=== PATIENT | male | born 1955 | race Caucasian/White ===

== ENCOUNTER → 2018-11-20 10:52 | Outpatient (CLI) | payer OTHER, SELFPAY ==
[2018-11-20 11:01] LABS: Bacteria Urine None Seen; RBC Urine None Seen (0-5/HPF); WBC Urine None Seen (0-5/HPF)
[2018-11-20 11:18] LABS: Appearance Urine UA CLEAR; Bilirubin Urine UA NEGATIVE (NEGATIVE); Color Urine UA YELLOW; Glucose Urine UA NEGATIVE (Negative); Ketones Urine UA NEGATIVE (NEGATIVE); Leukocyte Esterase Urine UA NEGATIVE (NEGATIVE); Nitrite Urine UA NEGATIVE (Negative); Occult Blood Urine UA NEGATIVE (Negative); Protein Urine UA NEGATIVE (Negative); Urobilinogen Urine UA 0.2 E.U./dL (0.2); pH Urine UA 6.5 (4.5-8.0)
[2018-11-20 11:21] LABS: Hematocrit 43.2 % (41-53); Hemoglobin 14.8 g/dL (13.5-17.5); Mean Corpuscular HGB Conc 34.3 % (30-36); Mean Corpuscular Volume 87.4 fL (80-100); Platelet Count 253 X10^3/uL (150-400); Red Blood Cell Count 4.94 X10^6/uL (4.5-5.9); Red Cell Distribution Width 13.2 % (11.6-14.8); White Blood Cell Count 6.1 X10^3/uL (4.5-11.0)
[2018-11-20 11:23] LABS: Urine Comments Microscopic Normal
[2018-11-20 11:32] LABS: Hemoglobin A1C% w Est Avg Glu 5.2 % (4.0-6.0)
[2018-11-20 11:36] LABS: Blood Urea Nitrogen 18 mg/dL (9-20); Carbon Dioxide 31 mmol/L (22-32); Chloride 98 mmol/L (98-107); Estimated Glomerular Filt Rate > 60.0 mL/min (>60); Glucose 103 mg/dL (80-110); HEMOLYSIS < 15 (0-50); Potassium 4.6 mmol/L (3.4-5.1); Sodium 141 mmol/L (137-145)
[2018-11-20 11:39] LABS: Transferrin 271 mg/dL (206-381)
== END ==
PROVIDERS: Visit Provider Orthopaedic Surgery
DX: Z01.818 Encounter for other preprocedural examination (principal); E61.1 Iron deficiency; N39.0 Urinary tract infection, site not specified; R73.9 Hyperglycemia, unspecified
CPT/HCPCS: 36415; 80048; 81001; 83036; 84466; 85027; 93005; 93010

== ENCOUNTER 2018-12-08 06:04 | Inpatient (IN) | payer OTHER, SELFPAY ==
[2018-11-26 13:51] VITALS: BMI 29.7
[2018-12-08] VITALS (18 sets, daily range): BP systolic 119–151; BP diastolic 62–95; PULSE 59–90; RESP 15–19; TEMP 36.3–36.9; O2SAT 93–96; BMI 27.8
--- NOTE | 2018-12-08 06:45 | DI.RAD.S_ITS ---
PROCEDURE: XR KNEE RT 1TO2V INDICATIONS: post op films TECHNIQUE: 2 view(s) of the knee acquired. COMPARISON: [facility], XR KNEE ARTHRITIC SERIES , 09/02/2018, 8:52. FINDINGS: Bones: Patient is status post knee joint arthroplasty. Hardware components are in expected positions. Visualized bony structures are intact. Soft tissues: Overlying postoperative changes are noted. IMPRESSION: Expected post surgical as above. Dictated by: Margarita Fortune M.D. on 12/08/2018 at 10:27 Approved by: Margarita Fortune M.D. on 12/08/2018 at 10:28
[2018-12-08] MEDS: LACTATED RINGERS 1,000 ML 42 ML IV (07:15)
[2018-12-08] MEDS: ACETAMINOPHEN 325 MG TABLET 975 MG PO ×2 (07:19→14:14)
[2018-12-08] MEDS: PREGABALIN 75 MG CAPSULE PO (07:20)
[2018-12-08] MEDS: CELECOXIB 200 MG CAPSULE PO (07:20)
--- NOTE | 2018-12-08 07:35 | PM.PREOP ---
Pre-operative Note Interval Note History & Physical reviewed/Exam performed by Physician: Yes Changes to H&P: No
--- NOTE | 2018-12-08 07:36 | PM.OP.1 ---
Operative Date/Time/Diagnoses Date of procedure: 12/08/18 Time of procedure: 09:15 Pre-op diagnosis: Right knee osteoarthritis Post-op diagnosis: same Procedure & Clinicians Procedure: Right total knee replacement Same procedure as scheduled: Yes Indications: The patient has had progressively worsening right knee pain with radiographic changes consistent with arthritis. Non-operative management has failed and the patient has requested total knee replacement. The risks, benefits and alternatives to surgery were discussed with the patient prior to proceeding. Risks discussed included, but were not limited to, failure to relieve pain, stiffness, infection, nerve damage, deep venous thrombosis, pulmonary embolism, stroke, coma, heart attack, permanent paralysis and , as well as the potential need for eventual revision of the prosthetic. Surgeon: Sam George Director Payer: Thu Zaragoza Click Yes if Unassisted: No Anesthesia Type: General, Spinal and Local Operative Notes Findings: Severe lateral and moderately severe medial and patellofemoral osteoarthritis Closure Type: primary Specimen(s): none sent Prosthetic devices, grafts, tissues, transplants, or devices: Implants used in this procedure were manufactured by the [employer] and [employer] and included the BCS II Journey total knee replacement with a size 6 Oxinium femur, a size 6 non porous tibial base plate, a 10 mm cross-linked polyethylene tibial insert and a 38 mm oval Manuela II patellar component. Applied: implant(s) Estimated Blood Loss (mL): 25 Blood products transfused: none Tourniquet time (min): 52 Procedure in detail: The patient was seen in the pre-operative area, where the patient identified the right knee as the operative site and this was marked with my initials. The patient received pre-operative antibiotics, and was taken to the operating room and placed on the operative table in the supine position. After satisfactory anesthesia, a time analysis clerk out was performed. The right leg was encircled with a tourniquet about the proximal thigh, and the leg was prepared from the toes to the tourniquet with ChloroPrep in the usual fashion and draped through sterile drapes. The leg was elevated and exsanguinated with Eschmark bandage and the tourniquet inflated to 250 mmHg pressure. The knee was approached through an approximately 18 cm incision centered over the patella and carried into the knee through a medial parapatellar arthrotomy. The anterior osteophytes and soft tissues were removed. The rotational landmarks of Celestino's line and the transepicondylar axis were marked on the femur with electrocautery, and intramedullary guide holes for the femur and tibia were created. The distal femoral cut was made in 6 degrees of valgus using the intramedullary guide at the primary cut setting. The proximal tibial cut was then made using the intramedullary guide, taking 7 mm of bone off the less involved medial side. The extension gap was checked and the rotation of the femoral component confirmed with the gap balancing system. The anterior, posterior and chamfer cuts were then made. The posterior osteophytes and soft tissues were then removed. The posterior capsule was injected with part of a mixture of 60 ml 0.25% Marcaine mixed with 20 ml Exparel and 4 mg of morphine for post-operative pain control. The remainder of this mixture was injected into the capsule and subcutaneous tissues during cement curing. The tibia was prepared with the rotation set by an extra medullary guide. Trial tibial and femoral components were then placed and the intercondylar notch cut through the femoral trial. Range of motion was 0-140 degrees, with good stability throughout the range. The patella was then cut to accommodate the patellar prosthetic. There was no need for a lateral release. The trials were then removed, and the femoral hole plugged with a bone plug. The bone was prepared with pulsatile lavage, and dried with a sponge. Cement was applied and the final prosthetics placed. Excess cement was removed during and after cement curing. After confirming there was no extruded cement posteriorly, the final tibial insert was placed. The knee was copiously irrigated and the tourniquet deflated. Hemostasis was obtained. The capsule was closed with interrupted # 2 polyester suture. The subcutaneous layer was closed with 3-0 Vicryl, and the skin with a running 3-0 V-Lock suture and SteriStrips. An Aquacel Ag dressing was applied and the patient was taken to recovery having tolerated the procedure well. Complications: none Post-operative Condition: stable Disposition: PACU Plan for aftercare: The patient will be maintained on a standard total knee replacement protocol with weight bearing as tolerated. The patient will receive aspirin and sequential compression devices for DVT prophylaxis. The patient will be discharged home when safe for the home environment.
[2018-12-08] MEDS: CEFAZOLIN 2 GM/100 ML FROZ.PIGGY IV ×2 (07:47→21:20)
[2018-12-08] MEDS: TRANEXAMIC ACID 1,000 MG VIAL 1000 MG INJ ×2 (08:13→09:07)
--- NOTE | 2018-12-08 08:16 | SUR.OPER ---
Supine on padded OR bed. Pillow under head, arms secured on padded armboards <90 degree abduction. Safety belt across torso. Non-operative leg secured with tape over blanket over lower leg. Operative leg secured in DeMayo/Luther positioner.
[2018-12-08] MEDS: BUPIVACAINE 0.25% W/ EPI 30 ML VIAL 60 ML INJ (08:19)
[2018-12-08] MEDS: MORPHINE 4 MG/ML INJ INJ (08:20)
[2018-12-08] MEDS: BUPIVACAINE LIPOSOME 266 MG/20 ML VIAL INJ (08:20)
--- NOTE | 2018-12-08 10:18 | PC.NURSE ---
Day shift: Pt on unit at approx 1015. 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 Will medicate per APR.
[2018-12-08] MEDS: OXYCODONE IR 10 MG TABLET PO ×3 (10:25→18:07)
--- NOTE | 2018-12-08 10:36 | SUR.PHASEI ---
0940 late entry To PACU, sleeping, resp unlabored, skin warm and dry, dressing CDI, pulses RLE strong. Ice/elevation to RLE. 1000 late entry Slept during RLE x-ray. Aroused spontaneously, states that I can feel it referring to rlE pain. pain level 4/10, appears relaxed, no grimace, moaning, etc. plan: transfer to acute care and begin pain management . report called to floor 1012 To 212, bed down and locked, call light within reach, clothing bag to the room. VSS on room air. Pt awake and oriented, Dressing remains CDI, Reported CMS improving in regards to being able to void soon. notified that he was in the room. Pt expressed appreciation for care. HOB elevated and crackers given upon arrival. SCD's on. No questions/concerns from staff or patient.
[2018-12-08] MEDS: LACTATED RINGERS 1,000 ML 125 ML IV ×2 (10:51→18:07)
--- NOTE | 2018-12-08 15:39 | PT.IIE ---
Current Diagnoses Unilateral primary osteoarthritis, right knee (12/08/18) Surgery Performed Operation Date: 12/08/18 07:45 Actual Procedures p Total Knee Arthroplasty(Right) - Sam George MD Surgical History (Last Updated 12/05/18 @ 11:19 by Audrey Herrera RN) Hx of appendectomy (Acute) Hx of bilateral inguinal hernia repair (Acute) Hx of prostatectomy (Acute ~12/2015) Hx of tonsillectomy (Acute) Medical History (Last Updated 12/05/18 @ 11:21 by Audrey Herrera RN) Amputation finger (Acute) Brain injury (Acute) Compound fracture (Acute) Dyslexia (Acute) Fistula (Acute ~1987) HLD (hyperlipidemia) (Acute) HTN (hypertension) (Acute) Incomplete right bundle branch block (RBBB) (Acute ~2016) Migraines (Acute) Neck fracture (Acute ~1985) Osteoarthritis (Acute) Prostate cancer (Acute) Tinnitus (Acute) Physical Therapy Inpatient Evaluation/Re-Eval M1 PT/OT-IP Prior Functional Status Start: 12/08/18 14:53 Freq: NEEDED Status: Active Protocol: Document 12/08/18 14:54 JGerman (Rec: 12/08/18 15:37 [id number]) Medical Review Prior Functional Status Medical History Reviewed Yes Mobility and Gait pt reports independent or modified independent using SPC for ambulation. Activities of Daily Living and IADL's independent with ADLs prior to TKA. Prior Functional Level (Other details) pt reports chronic R hip pain d/t previous surgeries, chronic B/L knee pain. plans to have L knee TKA. high physical activity level prior to surgery, pt reports walking 5 miles yesterday. uses SPC as needed d/t pain. Social History Household Members spouse Living Arrangements House Number of Floors (Floors) One Floor Number of Stairs To Enter/Railing? 3 stairs, railing on both sides but wide staircase. Home Environment Standard Height Toilet,Walk in Shower Home Equipment Front Wheel Walker,Straight Cane Employment Status [employer] Employed Additional Social History Comment pt's spouse available to help c mobility at home. pt and spouse are semi-retired. pt's home is single level but has 2 stairs w/o railing into tv room. has 3 dogs at home. M2 PT-IP Current Condition Start: 12/08/18 14:53 Freq: NEEDED Status: Active Protocol: Document 12/08/18 14:54 JG (Rec: 12/08/18 15:37 JG [email or web address]) Physical Therapy Current Condition Current Condition Evaluation Date 12/08/18 Treatment Diagnosis mobility deficits Weight Bearing Status Weight Bearing Status Weight Bear as Tolerated M3 PT-IP Subjective Start: 12/08/18 14:53 Freq: NEEDED Status: Active Protocol: Document 12/08/18 14:54 JG (Rec: 12/08/18 15:37 JG [email or web address]) Subjective Physical Therapy Visit Type Type Initial Evaluation Visit Start Time 13:50 Visit Stop Time 14:50 Total Visit Minutes 60 Physical Therapy Visit Comments Patient Comments pt notes high pain irritability with activity. pt agreeable to therapy and motivated. Patient Goals return to home and regular physical activity. Therapy Pain Assessment Pain Present Pain Present Pain Reported Location Right Knee Intensity 7 Scale Used Numeric (1 - 10) Pain Behaviors Facial Grimacing,Wincing Pain Management Techniques Timing of Activity with Medications M4 PT-IP Mobility and Gait Start: 12/08/18 14:53 Freq: NEEDED Status: Active Protocol: Document 12/08/18 14:54 JG (Rec: 12/08/18 15:37 JG [email or web address]) PT-Bed Mobility Assessment Rolling Level of Assist Independent Supine to Sit Supine to Sit Independent,Head of Bed Elevated PT-Transfer Assessment Sit to and From Stand Sit to and from Stand Contact Guard Assistance Equipment Transfer Assistive Device Gait Belt,Front Wheeled Walker Comments Mobility Comments no orthostatic drop in BP noted, see vitals section for specifics. Gait Assessment Gait Gait Assistance Required: Contact Guard Assist Distance (Feet) 50 Assistive Devices Assistive Device Front Wheeled Walker Gait Deviations General Gait Pattern Antalgic Factors Limiting Gait Function Factors Limiting Gait Function Pain Comments Gait Comments pt's walker fitted prior to ambulation. reports pain during ambulation. demonstrates antalgic gait but still maintains normal components of gait cycle. PT-Balance Assessment Sitting Balance and Reactions Static Sitting Balance Ability Good Dynamic Sitting Balance Ability Good Standing Balance and Reactions Static Standing Balance Ability Good Dynamic Standing Balance Ability Good M5 PT-IP Objective Assessments Start: 12/08/18 14:53 Freq: NEEDED Status: Active Protocol: Document 12/08/18 14:54 JG (Rec: 12/08/18 15:37 JG [email or web address]) Orientation Orientation/Cognition Level of Alertness Alert Language Function Ability No Deficits Noted Safety Awareness Understands Safety Issues Memory Description No Deficits Noted Gross Range of Motion Upper Extremity ROM Assessment Within Functional Limits Lower Extremity ROM Assessment Right Impaired Impairments limited knee flexion and extension. Strength Upper Extremity Strength Assessment Within Functional Limits Lower Extremity Strength Assessment Within Functional Limits Coordination Assessment Gross Coordination Gross Coordination WNL Sensation Assessment Sensation Gross Sensation WNL Light Touch Intact M6 PT-IP Treatment Start: 12/08/18 14:53 Freq: NEEDED Status: Active Protocol: Document 12/08/18 14:54 JG (Rec: 12/08/18 15:37 JG [email or web address]) Physical Therapy Treatment Exercises Exercises Ankle Pumps,Quad Sets,Heel Slides,Straight Leg Raises, Short Arc Quads,Passive Knee Extension Hang Education Education Provided Post-Op Packet,Safety M7 PT-IP Assessment and Plan Start: 12/08/18 14:53 Freq: NEEDED Status: Active Protocol: Document 12/08/18 14:54 JG (Rec: 12/08/18 15:37 JG [email or web address]) PT Summary Assessment and Plan Potential Rehabilitation Potential Excellent Status of Condition at Evaluation Stable Summary Impairments Pain,ROM,Balance,Transfers, Gait,Activity Tolerance Assessment Summary pt presents same day s/p R TKA with high pain irritability limiting tolerance for functional activities. pt is independent for bed mobility and requires contact guard assist for transfers and ambulation. pt will benefit from 1-2 more therapy sessions to ensure safety prior to discharge to home. treatment will focus on safely ascending /descending stairs with caregiver support prior to discharge. Goals Bed Mobility Goal Independent Transfer Goal Independent Gait Goal Standby Assistance Gait Distance 100 feet Other Goals ascend/descend 3 stairs with railing and standby assist from caregiver Days to Meet Goals 1 Frequency of Treatment Frequency Of Treatment Twice a Day Treatment Plan Physical Therapy Treatment Plan Transfer Training,Gait Training,Therapeutic Exercise, Balance Retraining,Post Op Education,Discharge Planning, Hot or Cold Pack Other Recommendations and Next Treatment stair training with caregiver Focus support Recommendations To Nursing Amount of Assist Needed 1 Person Assist Discharge Recommendations PT Discharge Recommendations Home with Assistance
[2018-12-08] MEDS: NALBUPHINE 20 MG/ML AMPUL 5 MG IV (18:26)
[2018-12-08] MEDS: PRAVASTATIN 20 MG TABLET PO (21:10)
[2018-12-08] MEDS: DOCUSATE 100 MG CAPSULE PO (21:11)
[2018-12-08] MEDS: TRAZODONE 100 MG TABLET PO (21:12)
[2018-12-08] MEDS: OXYCODONE/ACETAMINOPHEN 5/325 TABLET 2 TAB PO (21:12)
[2018-12-08] MEDS: ASPIRIN EC 81 MG TABLET PO (21:13)
--- NOTE | 2018-12-09 00:02 | PC.NURSE ---
Evening notes: Robert has been wide awake, Ox3 & pleasant. Expressed discouragement of not going home. VS stable, slightly hypertensive tonight. RA oxygen high 90's, continuous pulse ox in place evening shift. Denies numbness to legs, CMS intact. Rates pain to R knee 4/10 and medicated with Percocet. I called Dr Nation to clarify epidural pain medication orders, as patient originally started on Oxycodone but epidural orders were for Percocet. He is aware of situation and gave new order. Sat up in recliner for meal and a couple hours later transfered to bed via 1 assist. Wearing bilateral SCDs. Fall precautions in place, patient using call button appropriately. Alarm active for safety.
[2018-12-09 00:13] VITALS: BP 130/78; PULSE 68; RESP 16; TEMP 36.2; O2SAT 94
--- NOTE | 2018-12-09 00:43 | PC.NURSE ---
Addendum entered by Rachel Phillips R.N. 12/09/18 05:28: Patient complains of nail being driven through knee; medicated with Percocet. Dr Nation here and review patient's pain meds along with orders for scheduled Tylenol; d'cd Percocet and stated to use Oxycodone as long as receiving scheduled Tylenol. Addendum entered by Rachel Phillips R.N. 12/09/18 01:17: Medicated now with Percocet for 7/10 pain. Original Note: Patient is alert and oriented. Breath sounds CTA with RA sat of 94%. HRR. Denies nausea. BT present and is passing flatus. Chronic urinary dribbling but denies dysuria, frequency or urgency. Able to move self in bed. Out of bed with walker and 1 assist for safety; denies feeling weak or unsteady. Aquacel to right knee and wrapped with brittney; CDI. CMS intact bilaterally. Wearing calf SCD's. Complains of 6/10 pain but not due for additional Percocet at this time and declines Vistaril or Dilaudid stating he can wait until pain med is available; ice applied to knee. Fall risk score is high and bed alarm is activated.
[2018-12-09] MEDS: OXYCODONE/ACETAMINOPHEN 5/325 TABLET 2 TAB PO ×2 (01:14→05:07)
[2018-12-09] MEDS: LACTATED RINGERS 1,000 ML 125 ML IV (02:23)
[2018-12-09 04:45] VITALS: BP 138/76; PULSE 71; RESP 16; TEMP 36.7; O2SAT 96
[2018-12-09 07:40] VITALS: BP 136/73; PULSE 62; RESP 16; TEMP 36.5; O2SAT 96
--- NOTE | 2018-12-09 07:56 | PM.DS.1 ---
History of Present Illness History of Present Illness Date Patient Seen: 12/09/18 Time Patient Seen: 07:56 Chief complaint: [id number] Narrative: The history and physical are contained in the chart in a previously completed note. Please refer to that note for this information. Discharge Providers Provider Date of admission: 12/08/18 06:04 Discharge Date: 12/09/18 Primary care physician: Desean Yen MD Consults: 12/08/18 10:17 Consult to Discharge Planning Routine Comment: Consult to Physical Therapy Evaluate & Treat Comment: Physician Instructions: postop TKA protocol Discharge provider: Sam George MD Summary Hospital Course Discharge Diagnosis: 1. Right knee osteoarthritis Hospital Course: The patient was admitted to the hospital and taken directly to the operating room on December 08, 2018. He underwent a right total knee replacement without complication. On postoperative day 1 he was medically stable and anxious to be discharged. Status at Discharge Cognitive/behavioral status at discharge: oriented Functional status at discharge: uses cane/walker Overall status at discharge: patient is progressing back to baseline Time Spent with Patient Time spent: Less than 30 minutes Exam Vital Signs (past 8 hours): - 12/09/18 00:13 12/09/18 04:45 Temperature 97.2 F L 98.0 F Pulse Rate 68 71 Respiratory Rate 16 16 Blood Pressure 130/78 138/76 Pulse Oximetry 94 96 Oxygen Delivery Method Room Air Oxygen Flow Rate 0 Narrative Exam Narrative: Right knee wound is dressed with no drainage on the bandage. Calf is soft. Light touch and motion are intact in the right lower extremity. Discharge Plan Discharge Plan Patient Disposition: Home Discharge Med Rec/Prescriptions Prescriptions: New acetaminophen 325 mg Tablet 975 mg PO TID 30 Days Qty: 270 RF: 0 amlodipine [Norvasc] 5 mg Tablet 10 mg PO DAILY 100 Days RF: 0 aspirin 81 mg Tablet,Delayed Release (Dr/Ec) 81 mg PO BID 42 Days Qty: 84 RF: 0 meloxicam [Mobic] 7.5 mg Tablet 15 mg PO 0800 30 Days Qty: 60 RF: 0 oxycodone 5 mg Tablet 5 mg PO Q3HR PRN (Reason: Pain, Moderate (4-6)) Qty: 40 RF: 0 hydroxyzine pamoate 25 mg Capsule 25 mg PO Q6HR PRN (Reason: Nausea) Qty: 40 RF: 0 Continued pravastatin 20 MG tablet 20 mg PO BEDTIME Qty: 0 RF: 0 trazodone 100 mg Tablet 100 mg PO BEDTIME RF: 0 hydrochlorothiazide 25 mg Tablet 25 mg PO DAILY RF: 0 cetirizine [Aller-Yamilet] 10 mg Tablet 10 mg PO BEDTIME RF: 0 cyanocobalamin (vitamin B-12) [Vitamin B-12] 1,000 mcg Tablet 1,000 mcg PO DAILY RF: 0 multivitamin Capsule 1 cap PO DAILY RF: 0 Discontinued amlodipine [Norvasc] 5 MG tablet 10 mg PO DAILY Qty: 0 RF: 0 acetaminophen-codeine [Tylenol-Codeine #3] 300-30 mg Tablet 1 tab PO BID PRN (Reason: Pain) RF: 0 aspirin 81 mg Tablet,Delayed Release (Dr/Ec) 81 mg PO DAILY RF: 0 Follow up/Referrals: Desean Yen MD [Primary Care Provider] - Sam George MD [Physician] - 3-5 Days Provider Discharge Instructions Diet: Diet as Tolerated and Regular Activity: You may bear weight as tolerated on your right leg. Cold/Heat Therapy: Apply ice for 15 minutes of every hour as needed to the right knee for pain. Skin/Wound/Dressing Care Report to your healthcare provider any signs of infection, such as:: chills, fever, night sweats, increased pain, unusual drainage and unusual redness Dressing: You may remove the Sree wrap 3 days after surgery and shower normally. Leave the deeper dressing in place until follow-up. If the center strip of the deeper dressing becomes saturated with either water or blood please call the office. Visit Report/Discharge Packet Instructions: DI for Knee Replacement Stand Alone Forms: Surgery Discharge Discharge Data Primary Care Provider: Desean Yen
[2018-12-09 08:55] LABS: Hematocrit 34.8 % (41-53); Hemoglobin 12.2 g/dL (13.5-17.5)
[2018-12-09] MEDS: OXYCODONE IR 10 MG TABLET PO ×2 (09:37→13:17)
[2018-12-09] MEDS: CYANOCOBALAMIN (VITAMIN B-12) 500 MCG TABLET 1000 MCG PO (09:38)
[2018-12-09] MEDS: AMLODIPINE 5 MG TABLET 10 MG PO (09:38)
[2018-12-09] MEDS: ASPIRIN EC 81 MG TABLET PO (09:38)
[2018-12-09] MEDS: DOCUSATE 100 MG CAPSULE PO (09:38)
[2018-12-09] MEDS: hydroCHLOROthiazide 25 MG TABLET PO (09:38)
[2018-12-09] MEDS: ACETAMINOPHEN 325 MG TABLET 975 MG PO (09:38)
[2018-12-09] MEDS: MELOXICAM 7.5 MG TABLET 15 MG PO (09:40)
--- NOTE | 2018-12-09 10:46 | PT.IPTN ---
Current Diagnoses Unilateral primary osteoarthritis, right knee (12/08/18) Surgery Performed Operation Date: 12/08/18 07:45 Actual Procedures p Total Knee Arthroplasty(Right) - Sam George MD Physical Therapy Treatment Note M2 PT-IP Current Condition Start: 12/08/18 14:53 Freq: NEEDED Status: Active Protocol: Document 12/08/18 14:54 JG (Rec: 12/08/18 15:37 JG [email or web address]) Physical Therapy Current Condition Current Condition Evaluation Date 12/08/18 Treatment Diagnosis mobility deficits Weight Bearing Status Weight Bearing Status Weight Bear as Tolerated M3 PT-IP Subjective Start: 12/08/18 14:53 Freq: NEEDED Status: Active Protocol: Document 12/09/18 10:19 CLB (Rec: 12/09/18 11:18 CLB [email or web address]) Subjective Physical Therapy Visit Type Type Treatment Note Visit Start Time 10:19 Visit Stop Time 10:46 Total Visit Minutes 27 Number of 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 Therapy Pain Assessment Pain Present Pain Present Pain Reported Location Right Knee Intensity 5 Scale Used Numeric (1 - 10) Pain Management Techniques Timing of Activity with Medications M4 PT-IP Mobility and Gait Start: 12/08/18 14:53 Freq: NEEDED Status: Active Protocol: Document 12/09/18 10:19 CLB (Rec: 12/09/18 11:18 CLB [email or web address]) PT-Transfer Assessment Sit to and From Stand Sit to and from Stand Contact Guard Assistance Equipment Transfer Assistive Device Gait Belt,Front Wheeled Walker Transfers Transfer Destination Chair,Wheelchair Transfer Technique Stand Step Pivot Transfer Ability Level of Assist Contact Guard Assistance Gait Assessment Gait Gait Assistance Required: Contact Guard Assist Distance (Feet) 125 Assistive Devices Assistive Device Gait Belt,Front Wheeled Walker Gait Deviations General Gait Pattern Antalgic Factors Limiting Gait Function Factors Limiting Gait Function Pain Comments Gait Comments Pt able to walk with step through gait pattern with cues for posture and not standing to close to front of walker. Stair Climbing Assessment Evaluation Level of Assist On Stairs Contact Guard Assistance Devices Stair Climbing Assistive Devices Front Wheel Walker,Right Railing Technique/Endurance Stair Climbing Direction Ascend and Descend Stair Climbing Technique Step to Step Number of Steps Climbed 6 Stair Climbing Set # Repetitions (reps) 2 Comments Stair Climbing Comments Pt climbed three steps with right rail CGA. Pt then climbed platform step with FWW CGA. Pt present for stair training. M5 PT-IP Objective Assessments Start: 12/08/18 14:53 Freq: NEEDED Status: Active Protocol: Document 12/08/18 14:54 JG (Rec: 12/08/18 15:37 JG [email or web address]) Orientation Orientation/Cognition Level of Alertness Alert Language Function Ability No Deficits Noted Safety Awareness Understands Safety Issues Memory Description No Deficits Noted Gross Range of Motion Upper Extremity ROM Assessment Within Functional Limits Lower Extremity ROM Assessment Right Impaired Impairments limited knee flexion and extension. Strength Upper Extremity Strength Assessment Within Functional Limits Lower Extremity Strength Assessment Within Functional Limits Coordination Assessment Gross Coordination Gross Coordination WNL Sensation Assessment Sensation Gross Sensation WNL Light Touch Intact M6 PT-IP Treatment Start: 12/08/18 14:53 Freq: NEEDED Status: Active Protocol: Document 12/09/18 10:19 CLB (Rec: 12/09/18 11:18 CLB [email or web address]) Physical Therapy Treatment Exercises Exercises Quad Sets,Heel Slides,Short Arc Quads Education Education Provided Post-Op Packet,Safety M7 PT-IP Assessment and Plan Start: 12/08/18 14:53 Freq: NEEDED Status: Active Protocol: Document 12/09/18 10:19 CLB (Rec: 12/09/18 11:18 CLB [email or web address]) PT Summary Assessment and Plan Potential Rehabilitation Potential Excellent Status of Condition at Evaluation Stable Summary Impairments Pain,ROM,Balance,Transfers, Gait,Activity Tolerance Assessment Summary Pt able to meet goals for discharge. Pt able to ambulate ~125ft and climb steps with present. Pt required cues for walker use/step sequencing but was able to demonstrate proper sequencing after instruction. Pt was able to climb steps successfully but did take one step down with operated leg which increased his pain but was able to complete platform step training and get back to room . Pt was was 510 after tx. Pt was left in reclined chair with ice on RLE, call light and all needs within reach. present in room. Goals Bed Mobility Goal Independent Transfer Goal Independent Gait Goal Standby Assistance Gait Distance 100 feet Other Goals ascend/descend 3 stairs with railing and standby assist from caregiver Days to Meet Goals 1 Frequency of Treatment Frequency Of Treatment Twice a Day Treatment Plan Physical Therapy Treatment Plan Transfer Training,Gait Training,Therapeutic Exercise, Balance Retraining,Post Op Education,Discharge Planning, Hot or Cold Pack Recommendations To Nursing Amount of Assist Needed 1 Person Assist Discharge Recommendations PT Discharge Recommendations Home with Assistance
--- NOTE | 2018-12-09 14:34 | PC.NURSE ---
Discharge home: IV dc'd intact. Medicated with Oxycodone 10 mg ahead of ride home. Reviewed all d/c instructions and med list thoroughly with patient and . Given script for Oxycodone, all other new meds called in to [facility] [place] pharmacy in [place] by this display card writer. All personal belongings sent w/ patient at discharge. Will follow up as previously scheduled. Verbalized understanding of all discharge instructions and stated no further questions. Wheeled out to private vehicle by this display card writer.
--- NOTE | 2018-12-09 17:17 | CM.DANOTE ---
Discharge Planning/Care Management DCP: assessment: case received this morning, EMR reviewed. Discussed in Team Rounds. Pt is a 63 year old male who admitted yesterday for a planned R knee surgery. Payer: [employer]. PT was set to see pt later in the morning and, if stable for same, would likely d/c to home. A check in now shows that pt did leave for home earlier this afternoon. No d/c concerns were identified by the care team members. CM Discharge Assessment Start: 12/09/18 17:17 Freq: Status: Discharge Protocol: Document 12/09/18 17:17 ITV (Rec: 12/09/18 17:17 ITV [id number]) Discharge Planning Assessment Advance Directives? Yes Advance Directives on File Yes History Provided By Medical Record Prior Living Arrangements House Household Members spouse Review Status In Process Pre-Anesthesia Assessment Start: 11/26/18 13:51 Freq: Status: Complete Protocol: Document 11/26/18 13:51 CAB (Rec: 11/26/18 14:26 CAB [id number]) Pre-Anesthesia Assessment Patient Also Known As (HAWA Gustafson Patient Information Reviewed Via Phone Assessment Assessment Completed With Patient Diagnostic Results BMP/CMP,CBC,EKG Comment Labs/EKG @ 11/20/18 Primary Care Provider Desean Yen Seen Specialist in Last 12 Months Yes Specialist Seen Opthamologist/Radiology Technologist, Orthopedist,[place],Other Comment [facility] Primary Language Nicarag[place] Clinical Registered Nurse Required No Height 182.88 cm Weight 99.337 kg Body Mass Index (BMI) 29.7 Hearing Ability Normal Visual Assist Glasses Dentition Type Teeth, Natural Present Comment Dylexia Hx Anesthesia Reactions No Hx Family Anesthesia Reaction No Hx Malignant Hyperthermia No Hx Blood Transfusions No Anesthesia Review Requested No alcohol intake current alcohol intake frequency 0-2 drinks per day Smoking Status Never smoker Substance Use Type does not use Pain Present Pain Reported Musculoskeletal Symptoms Abnormal Gait,Difficulty Walking,Joint Pain,Muscle Cramps,Muscle Spasms History of Falling (Recent or History of No ) Patient is completely paralyzed or No completely immobile Prosthesis or Orthotic Device Cane,Front Wheel Walker Mental Status Oriented to own ability Is patient on oxygen? No Does patient have [place]/SOB No Hx Sleep Apnea No Currently Taking a Beta Noreen No Can You Climb a Flight of Stairs Without Yes SOB Hx Chest Pain No Hx SOB No Hx Syncope or Dizziness No Anti-Coagulant Therapy No Has a Knock Up Assembler No Cardiac Testing No Hx Pacemaker/ICD No Pacemaker Rep Required? No Cardiac Clearance Received Not Applicable dysphagia No Bladder Pattern Incontinent,Nocturia Urinary Catheter Present No Hx Urinary Self Catheterization No Comment Occasional incontinence with postional changes Diabetes No HgbA1C 5.2 Date 11/20/18 Hx Drug Resistant Organism No Presence of External or Internal Medical Yes: Cervical hardware, right Devices inner ear piston Have you traveled outside the [facility] in the last 30 days? Marital Status Lives With spouse Prior Living Arrangements House Number of Floors (Floors) One Floor Number of Stairs To Enter/Railing? 3 steps Support System Spouse Does the Patient Have Assistance After Yes Surgery Patient Discharge Plan Description Return Home Comment Pt advised less than 1 day length of stay per surgeon Feels Safe in Current Environment Yes Been Physically Hurt or Threatened By a No Person in Current Environment Do you have thoughts of harming yourself None or others? Are you currently considering suicide? No Do you have a plan to hurt yourself or No Plan others? Do You Have Any Spiritual Beliefs That No May Affect Your HC Choices? Do You Have Any Cultural Practices That No May Affect Your HC Choices? Comment Buddhist Who Can We Speak to About Patient's Care Family, friends Identifying Code for Release of Patient Declines to issue Information Health Care Proxy/Next of Kin Radha Lawson () Health Care Proxy [phone] Emergency Contact Name Radha Lawson () Emergency Contact [phone] Advance Directives? Yes Advance Directives on File Yes Power of Sanitizer Yes Power of Sanitizer Name Radha Lawson () Power of Sanitizer [phone] PAC Instructions Durable medical equipment, Medications to take/avoid, Nasal antibiotic,No ETOH/ petroleum product on skin DOS, NPO,Post-op transportation,Pre -surgical wash,Sturdy shoes/ comfortable clothes,Do not bring valuables and remove jewelry
== END 2018-12-09 14:40 | disposition home or self-care (01) | DRG 470 ==
PROVIDERS: Admitting Provider Orthopaedic Surgery; PCP General Practice; Visit Provider Orthopaedic Surgery
PROC: 0SRC0JZ Replacement of Right Knee Joint with Synthetic Substitute, Open Approach (ICD-10-PCS; CPT 27447; principal; 2018-12-08 07:45)
DX: M17.11 Unilateral primary osteoarthritis, right knee (principal); I10 Essential (primary) hypertension; E78.5 Hyperlipidemia, unspecified
CPT/HCPCS: 36415; 73560; 85014; 85018; 94762; 97110; 97116; 97161; 97530; C1776; C9290; J0690; J1100; J2250; J2270; J2274; J2300; J2405; J2704; J3010

== ENCOUNTER → 2022-05-01 11:15 | Outpatient (CLI) | payer MEDICARE, OTHER, SELFPAY ==
[2018-12-08 10:31] VITALS: BMI 27.8
[2022-05-01 13:20] LABS: Alanine Aminotransferase 51 IU/L (<50); Albumin 4.5 g/dL (3.5-5.0); Albumin Globulin Ratio 1.6 (1.0-2.8); Alkaline Phosphatase 72 U/L (38-126); Aspartate Aminotransferase 31 IU/L (17-59); BUN Creatinine Ratio 21.1 (6-22); Bilirubin Total 0.7 mg/dL (0.2-1.3); Blood Urea Nitrogen 16 mg/dL (9-20); Calcium 9.6 mg/dL (8.4-10.2); Carbon Dioxide 30 mmol/L (22-32); Chloride 99 mmol/L (98-107); Cholesterol 182 mg/dL (140-199); Estimated Glomerular Filt Rate > 60 mL/min (>60); Globulin 2.8 g/dL (1.7-4.1); Glucose 110 mg/dL (80-110); HDL Cholesterol 48 mg/dL (40-60); HEMOLYSIS < 15 (0-50); LDL Cholesterol Calculated 103 mg/dL (<100); Sodium 139 mmol/L (137-145); Total Protein 7.3 g/dL (6.3-8.2); Triglycerides 154 mg/dL (35-150)
== END ==
PROVIDERS: PCP Family Medicine; Referring Provider Family Medicine; Visit Provider Family Medicine
DX: Z00.00 Encounter for general adult medical examination without abnormal findings (principal); E78.5 Hyperlipidemia, unspecified; I10 Essential (primary) hypertension
CPT/HCPCS: 36415; 80053; 80061; 83036

== ENCOUNTER → 2022-05-04 11:34 | Outpatient (CLI) | payer MEDICARE, OTHER, SELFPAY ==
[2018-12-08 10:31] VITALS: BMI 27.8
[2022-05-07 10:17] LABS: Fecal Immunochemical Test Negative (Negative)
== END ==
PROVIDERS: PCP Family Medicine; Referring Provider Family Medicine; Visit Provider Family Medicine
DX: Z12.11 Encounter for screening for malignant neoplasm of colon (principal)
CPT/HCPCS: 82274

== ENCOUNTER 2022-05-15 09:43 | Emergency (ER) | payer OTHER, SELFPAY ==
[2018-12-08 10:31] VITALS: BMI 27.8
[2022-05-15 09:45] VITALS: BP 176/89; PULSE 87; RESP 15; TEMP 36.5; O2SAT 96; BMI 29.7
[2022-05-15 09:47] VITALS: PULSE 89; O2SAT 96
[2022-05-15 09:48] VITALS: BP 176/89; PULSE 84; O2SAT 96
[2022-05-15 10:00] VITALS: BP 163/76; PULSE 67; O2SAT 95
[2022-05-15 10:30] VITALS: PULSE 70; O2SAT 96
[2022-05-15 10:31] VITALS: BP 156/72; PULSE 68; O2SAT 96
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
== END 2022-05-15 10:50 | disposition home or self-care (01) ==
PROVIDERS: Emergency Provider Emergency Medicine; PCP Family Medicine
DX: R42 Dizziness and giddiness (principal); I10 Essential (primary) hypertension
CPT/HCPCS: 93005; 93010; 99281; 99282

== ENCOUNTER → 2022-06-06 10:53 | Outpatient (CLI) | payer MEDICARE, OTHER, SELFPAY ==
[2018-12-08 10:31] VITALS: BMI 27.8
[2022-06-06 13:51] LABS: Prostate Specific Antigen Scrn < 0.064 ng/mL (0.1-4.0)
== END ==
PROVIDERS: PCP Family Medicine; Referring Provider Family Medicine; Visit Provider Family Medicine
DX: Z12.5 Encounter for screening for malignant neoplasm of prostate (principal)
CPT/HCPCS: 36415; G0103

== ENCOUNTER → 2022-09-03 11:49 | Outpatient (CLI) | payer MEDICARE, OTHER, SELFPAY ==
[2018-12-08 10:31] VITALS: BMI 27.8
[2022-09-03 13:19] LABS: Add Manual Diff / Slide Review NO; Basophils Absolute Auto 100 /uL (0-100); Basophils Percent Auto 0.8 % (0-2); Eosinophils Absolute Auto 400 /uL (0-450); Eosinophils Percent Auto 6.3 % (2-4); Hematocrit 41.8 % (41-53); Hemoglobin 14.7 g/dL (13.5-17.5); Lymphocytes Absolute Auto 2200 /uL (1100-4500); Lymphocytes Percent Auto 31.9 % (25-40); Mean Corpuscular HGB Conc 35.3 % (30-36); Mean Corpuscular Hemoglobin 30.1 PG (26-34); Mean Corpuscular Volume 85.4 fL (80-100); Monocytes Absolute Auto 800 /uL (0-900); Monocytes Percent Auto 10.9 % (3-14); Neutrophils Absolute Auto 3500 /uL (1500-7000); Neutrophils Percent Auto 50.1 % (50-75); Platelet Count 276 X10^3/uL (150-400); Red Blood Cell Count 4.89 X10^6/uL (4.5-5.9); Red Cell Distribution Width 12.4 % (11.6-14.8)
[2022-09-03 13:43] LABS: BUN Creatinine Ratio 21.4 (6-22); Blood Urea Nitrogen 15 mg/dL (9-20); Calcium 9.7 mg/dL (8.4-10.2); Carbon Dioxide 31 mmol/L (22-32); Chloride 98 mmol/L (98-107); Estimated Glomerular Filt Rate > 60 mL/min (>60); Glucose 126 mg/dL (80-110); HEMOLYSIS < 15 (0-50); Potassium 3.9 mmol/L (3.4-5.1); Sodium 137 mmol/L (137-145)
[2022-09-04 07:09] LABS: Labcorp Hemoglobin (Hb) A1c 6.5 % (4.8-5.6)
== END ==
PROVIDERS: PCP Family Medicine; Referring Provider Orthopaedic Surgery Foot and Ankle Surgery; Visit Provider Orthopaedic Surgery Foot and Ankle Surgery
DX: Z01.818 Encounter for other preprocedural examination (principal); Z01.812 Encounter for preprocedural laboratory examination; R73.9 Hyperglycemia, unspecified; E66.9 Obesity, unspecified; I10 Essential (primary) hypertension
CPT/HCPCS: 36415; 80048; 83036; 85025; 93005

== ENCOUNTER 2022-11-09 10:20 | Day surgery (SDC) | payer MEDICARE, OTHER, SELFPAY ==
[2018-12-08 10:31] VITALS: BMI 27.8
[2022-10-24 13:49] VITALS: BMI 30.3
[2022-11-09] VITALS (7 sets, daily range): BP systolic 109–139; BP diastolic 60–83; PULSE 67–90; RESP 14–18; TEMP 35.9–36.6; O2SAT 91–97; BMI 31.1
--- NOTE | 2022-11-09 06:00 | DI.RAD.S_ITS ---
PROCEDURE: XR KNEE LT 1TO2V INDICATIONS: tka TECHNIQUE: 2 view(s) of the knee acquired. COMPARISON: [facility], [facility], XR KNEE RT 1TO2V, 12/08/2018, 9:43. FINDINGS: Bones: Patient is status post knee joint arthroplasty. Hardware components are in expected positions. Visualized bony structures are intact. Soft tissues: Overlying postoperative changes are noted. IMPRESSION: Normal alignment after left total knee arthroplasty. Dictated by: Angelo Cueva M.D. on 11/09/2022 at 15:50 Approved by: Angelo Cueva M.D. on 11/09/2022 at 15:51
[2022-11-09] MEDS: PREGABALIN 75 MG CAPSULE PO (11:14)
[2022-11-09] MEDS: CELECOXIB 200 MG CAPSULE PO (11:14)
[2022-11-09] MEDS: LACTATED RINGERS 1,000 ML 42 ML IV (11:14)
[2022-11-09] MEDS: ACETAMINOPHEN 325 MG TABLET 975 MG PO (11:14)
--- NOTE | 2022-11-09 12:19 | PM.PREOP ---
Pre-operative Note Interval Note History & Physical reviewed/Exam performed by Physician: Yes Changes to H&P: No
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
[2022-11-09] MEDS: CEFAZOLIN 2 GM/100 ML PREMIX 100 ML IV ×2 (13:05→20:58)
[2022-11-09] MEDS: TRANEXAMIC ACID 1,000 MG VIAL 1000 MG INJ ×2 (13:10→14:45)
--- NOTE | 2022-11-09 13:28 | SUR.OPER ---
Supine on padded OR bed. Pillow under head, arms secured on padded armboards <90 degree abduction. Safety belt across torso. Non-operative leg secured with tape over blanket over lower leg. Operative leg secured in Luther positioner and in control of the Surgeon. Foam padded brace at thigh of operative leg.
[2022-11-09] MEDS: BUPIVACAINE 0.25% (PF) 60 ML, EPINEPHrine 0.3 MG INJ (13:37)
[2022-11-09] MEDS: BUPIVACAINE LIPOSOME 266 MG/20 ML VIAL INJ (14:30)
--- NOTE | 2022-11-09 15:02 | PM.OP.1 ---
Operative Date/Time/Diagnoses Date of procedure: 11/09/22 Time of procedure: 13:20 Pre-op diagnosis: Left knee arthritis Post-op diagnosis: same Procedure & Clinicians Procedure: Total knee arthroplasty, left Same procedure as scheduled: Yes Indications: The patient is a 67 with end-stage vytz-gi-ityl knee left knee arthritis. The patient has valgus knee arthritis. He has failed conservative treatment with activity modifications, injections, physical therapy and bracing. They has been indicated for total knee replacement. He had a previous right total knee replacement. The risks and benefits of the procedure have been discussed with the patient even opportunity to ask questions. The risks of surgery include but are not limited to infection, malunion, nonunion, fracture, loosening, persistence of pain, damage to nerves and blood vessels, need for additional procedures, DVT, PE, cardiopulmonary complications and . The patient expressed a thorough understanding of the risks and benefits of surgery and has elected to proceed. Consent was signed in the office. During the operation the services of physician surgical consultant were medically indicated and necessary to provide the exposure of the operative site for the surgical procedure and to maintain the limb in a proper position to carry out the procedure safely and efficiently. Without a qualified district administrative assistant being present this would extend the operative procedure and would have made the procedure more technically difficult to perform. The surgical consultant was medically necessary for the proper positioning, retraction and manipulation of the limb, proper exposure, and manipulation of the tissue for implantation implants and closure. Surgeon: Jennifer Santana Embosser Apprentice: Milton Nair Anesthesia Type: General, Spinal and Local Operative Notes Findings: End-stage valgus knee arthritis tricompartmental arthritis full-thickness cartilage loss medial lateral femoral condyles and patellofemoral joint. Closure Type: primary Specimen(s): none sent Prosthetic devices, grafts, tissues, transplants, or devices: De Santiago and nephew journey2 bCS Femur Oxinium size 6 Tibia size 5 Patella 38 x 9 mm Poly 12 mm Estimated Blood Loss (mL): 50 Blood products transfused: none Tourniquet time (min): 69 Procedure in detail: Patient was seen in the preoperative area where the patient and site of surgery were identified in the operative knee was marked informed consent confirmed. This was the left knee. Patient received the appropriate preoperative antibiotics this was 2 g of Ancef. And other preoperative medications and was taken to the operating room placed on operating table in the supine position. Spinal anesthetic were administered. The operative extremity was then prepped and draped in the standard sterile fashion with a nonsterile tourniquet high on the thigh. Patient was placed on the green foam bolsters. A lateral post was placed at the level of the proximal thigh /trochanter area as a lateral post. Formal time-out procedure was performed confirming the patient's side and site of surgery and administration of appropriate preoperative antibiotics and implants were in the room accounted for. All were in agreement. Patient received a preoperative dose of tranexamic acid and then a 2nd dose at tourniquet release Patient was prepped and draped in the standard sterile fashion and the foot was placed into the leg espinoza. This was taken into high flexion and the incision was marked out over the anterior knee to the level of the medial tubercle tubercle. The Esmarch was then used for exsanguination and the tourniquet was inflated to 250 mmHg. Was made through the skin and subcutaneous tissue in high flexion this was then brought down into 30? of flexion for the medial parapatellar arthrotomy. A marker pen was used to issac the arthrotomy site for later repair. Joint fluid was evacuated. The anterior osteophytes and soft tissues were removed. A very minimal medial release was initially made along the medial proximal tibia with Bovie given the patient's valgus deformity. The patella was cut 1st using the saw sized and prepped and then subluxed throughout the case and protected. The leg was then taken into extension and the patella was everted and the patella was cut to accommodate the patellar button. This was sized to a 38 mm button for a 9 mm thickness to recreate the original dimensions of the patella. Poly was removed and the protector replaced and the patella was subluxed and the knee was taken back up into flexion and attention was returned to the femur. Then the rotational landmarks of Whitesides line and the trans epicondylar axis were marked on the femur with electrocautery. Then the intramedullary guide for the femur was created. The distal femoral cut was made in 5? of valgus using the intramedullary guide with the cut setting on 0+ as the patient did not have a preoperative flexion contracture. The ACL and PCL released. The proximal tibia was then cut using the intramedullary guide, taking 7 mm off the less involved side this was the medial plateau. The Gunnar wing was used to check the slope through the guide. In extension remainders of the medial and lateral menisci were removed. The extension flexion gaps were then checked using both the flexion extension blocks. femur was then sized and the rotation set using the posterior condyle referencing 3? of external rotation. This measured a size 6. Cut block was then placed and the anterior, posterior and chamfer cuts were then made. The posterior osteophytes and soft tissues were then removed. Then in extension the posterior capsule was injected with a mixture of 40 mL of 0.25% Marcaine and 20 mL of 266 mg Exparel care to avoid excessive injection posterior laterally. The remainder of this was saved for the capsule and subcutaneous tissue and placed during cement curing. Attention was then returned to the tibia and this was prepared with the rotation set by the extramedullary guide. Lined up with the tibial crest and the 2nd toe. The tibial trial was then pinned in place and the trial femoral components were placed. Then the intercondylar notch was cut through the femoral trial to create the box this was done with the distal than the proximal drill and then the box cut distally and then proximally. Next the insert was placed and the trial poly placed. This was stable in flexion and extension and there was a 0-135 degree range of motion. The tibia was then finished with the drill and flange cuts and then this was removed. All trials were removed. The wound and bone was irrigated with pulsatile lavage. This was then dried with a sponge. The components were verified and opened and the cement was mixed. Cement was applied to the components and then to the bone then the tibia was cemented in place 1st followed by the femur then the patella. Excess cement was removed. With care looking around the back of the knee. Remainder of the injection was injected around the capsule. trial poly was placed back in the leg was placed into extension for the patellar cementing. After this was cured approximately 15 minutes later and the dilute Betadine solution was placed for at least 3 minutes in the wound this was then irrigated out and the final poly was placed. This was a 12 mm poly. The tourniquet was released hemostasis was achieved. Final 1g of tranexamic acid was given IV at the time of tourniquet release. The capsule was closed with 1. Ethibond suture. Subcutaneous layer was closed with 3-0 Vicryl suture. Skin was closed with a running V lock suture Stratafix Monocryl type suture and Dermabond. An Aquacel dressing was placed. An Sree wrap was applied. Anesthetic was terminated the patient was woken from anesthesia and taken to recovery room in good condition. There no immediate complications from this procedure. The patient will be maintained on a standard total knee replacement protocol with weight-bearing as tolerated. Complications: none Post-operative Condition: stable Disposition: PACU Plan for aftercare: Weightbear as tolerated. Commence range of motion as tolerated. Discharge once passes PT. start outpatient PT within 1 week. Follow up in 2 weeks for wound check In [facility]. Aspirin 81 mg b.i.d. for 6 weeks for DVT prophylaxis
[2022-11-09] MEDS: ACETAMINOPHEN 325 MG TABLET 650 MG PO ×2 (16:31→20:57)
[2022-11-09] MEDS: LACTATED RINGERS 1,000 ML 100 ML IV (16:35)
[2022-11-09] MEDS: ASPIRIN EC 81 MG TABLET PO (20:57)
[2022-11-09] MEDS: OXYCODONE IR 5 MG TABLET PO (20:57)
[2022-11-09] MEDS: METFORMIN XR 500 MG TABLET PO (20:57)
[2022-11-09] MEDS: DOCUSATE 100 MG CAPSULE PO (20:57)
[2022-11-09] MEDS: TRAZODONE 50 MG TABLET 100 MG PO (20:58)
[2022-11-09] MEDS: hydrOXYzine pamoate 25 MG CAPSULE PO (20:58)
[2022-11-09] MEDS: KETOROLAC 30 MG/ML VIAL IV (20:58)
[2022-11-10] MEDS: KETOROLAC 30 MG/ML VIAL IV ×2 (02:59→09:29)
[2022-11-10] MEDS: LACTATED RINGERS 1,000 ML 100 ML IV (02:59)
[2022-11-10] MEDS: ACETAMINOPHEN 325 MG TABLET 650 MG PO ×2 (03:00→09:29)
[2022-11-10] MEDS: hydrOXYzine pamoate 25 MG CAPSULE PO (03:00)
[2022-11-10] MEDS: OXYCODONE IR 5 MG TABLET PO ×4 (03:00→14:24)
[2022-11-10] MEDS: CEFAZOLIN 2 GM/100 ML PREMIX 100 ML IV (05:02)
[2022-11-10 07:00] VITALS: BP 133/73; PULSE 78; O2SAT 93
[2022-11-10] MEDS: DOCUSATE 100 MG CAPSULE PO (08:18)
[2022-11-10] MEDS: ASPIRIN EC 81 MG TABLET PO (08:18)
[2022-11-10] MEDS: METFORMIN XR 500 MG TABLET PO (08:19)
[2022-11-10] MEDS: AMLODIPINE 5 MG TABLET 10 MG PO (08:20)
[2022-11-10] MEDS: hydroCHLOROthiazide 25 MG TABLET PO (08:20)
--- NOTE | 2022-11-10 11:11 | CM.DANOTE ---
DCP: Chart review for case, met with patient at bedside, they agree to case management assessment. Completed DCP assessment based on information available. Patient is a 67 year old admitted for planned left knee replacement. 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 PCP: Biju Zayas Payer: Medicare/ DME: FWW DCP: Home with family. Chasity Noriega RN CM Discharge Planning/Care Management CM Discharge Assessment Start: 11/10/22 11:10 Freq: Status: Active Protocol: Document 11/10/22 11:10 BQ (Rec: 11/10/22 11:11 BQ [id number]) Discharge Planning Assessment Advance Directives? Yes: Advance Directive Advance Directives on File Yes History Provided By Patient,Medical Record Has Patient been admitted in last 30 No days? Prior Living Arrangements House Household Members spouse Type of transporation used prior to Drives own vehicle admit Independent with ADL's Yes Is patient alert and oriented? Yes Caregiver for Another No Barriers to Discharge No Discharge Plan Home Referrals Initiated None needed Whiteboard Updated in Patient Room with Yes name and ext. # of Transmission Supervisor Review Status In Process Next Review Type Continued Stay Review Pre-Anesthesia Assessment Start: 10/24/22 13:49 Freq: Status: Active Protocol: Document 10/24/22 13:49 AK (Rec: 10/24/22 14:46 AK [id number]) Pre-Anesthesia Assessment Patient Information Reviewed Via Phone Assessment Assessment Completed With Patient Diagnostic Results BMP/CMP,CBC,EKG Primary Care Provider Biju Zayas Comment Cleared for surgery per patient Seen Specialist in Last 12 Months Yes Specialist Seen [facility],Orthopedist, Sleep specialist Preferred Language Ukrainian Height 185.42 cm Weight 104.326 kg Body Mass Index (BMI) 30.3 Hearing Ability Normal Visual Impairment No Limitations Visual Assist None Dentition Type Teeth, Natural Present Barriers to Learning None Hx Anesthesia Reactions No Hx Family Anesthesia Reaction No Hx Malignant Hyperthermia No Hx Blood Transfusions No Hx Blood Transfusion Reaction No: n/a Anesthesia Review Requested No Nurse Orthopaedic No alcohol intake current alcohol intake frequency 0-2 drinks per day Alcohol Intake Frequency Other: rum/beer daily Smoking Status Never smoker Substance Use Type does not use Pain Present Pain Reported Comment left knee, pelvis, neck Musculoskeletal Symptoms Difficulty Walking,Joint Pain, Neck Pain History of Falling (Recent or History of No ) Patient is completely paralyzed or No completely immobile Ambulatory Aid None/bed rest/nurse assist Gait/Transferring Normal/bedrest/immobile Mental Status Oriented to own ability Is patient on oxygen? No Does patient have KENYON/SOB No Hx Sleep Apnea Yes CPAP/BIPAP use not prescribed Sleep apnea treatment Oral appliance Currently Taking a Beta Noreen No Can You Climb a Flight of Stairs Without Yes SOB Hx Chest Pain No Hx SOB No Hx Syncope or Dizziness Yes: Vertigo Anti-Coagulant Therapy Yes: Aspirin Has a Tank Charger No Cardiac Testing No Hx Pacemaker/ICD No Pacemaker Rep Required? No Diet Type At Home Regular Dysphagia No Bladder Pattern Incontinent Urinary Catheter Present No Hx Urinary Self Catheterization No Diabetes Yes HgbA1C 6.5 Date 09/03/22 Hx Drug Resistant Organism No Presence of External or Internal Medical Yes: Cervical spine hardware, Devices right inner ear piston, right TKA Have you had any close contact with No someone diagnosed with COVID-19? Are you experiencing any of these No symptoms symptoms? Lives With spouse Current Living Arrangements House Number of Floors (Floors) One Floor Number of Stairs To Enter/Railing? 3/yes Support System Spouse Does the Patient Have Assistance After Yes Surgery Patient Discharge Plan Description Return Home Feels Safe in Current Environment Yes Been Physically Hurt or Threatened By a No Person in Current Environment Do you have thoughts of harming yourself None or others? Are you currently considering suicide? No Do you have a plan to hurt yourself or No Plan others? Do You Have Any Spiritual Beliefs That No May Affect Your HC Choices? Do You Have Any Cultural Practices That No May Affect Your HC Choices? Who Can We Speak to About Patient's Care Radha Lawson () Health Care Proxy/Next of Kin Radha Lawson () Health Care Proxy [phone] Emergency Contact Name Radha Lawson () Emergency Contact [phone] Advance Directives? Yes: Advance Directive Advance Directives on File Yes Power of Outplacement Consultant Yes Power of Outplacement Consultant Name Radha Lawson () Power of Outplacement Consultant [phone] PAC Instructions Assistance for 24 hours post- op,Diabetes instructions,Do not shave/clip surgical site, Medications to take/avoid, Nasal antibiotic,No ETOH/ petroleum product on skin DOS, NPO,Post-op transportation,Pre -surgical wash,Sensory aids, Sturdy shoes/comfortable clothes,Do not bring valuables and remove jewelry
--- NOTE | 2022-11-10 11:12 | PM.DS.1 ---
History of Present Illness History of Present Illness Date Patient Seen: 11/10/22 Chief complaint: L TKA Narrative: Patient is resting comfortably in bed this morning. He complains of mild left posterior knee pain which is well controlled with medication. He states he is not worked with physical therapy yet, though he thinks that it will go well. Denies nausea, vomiting, numbness or tingling to distal extremity. Discharge Providers Provider Discharge Date: 11/10/22 Primary care physician: Biju Zayas DO Consults: 11/09/22 15:44 Consult to Discharge Planning Routine Comment: Consult to Occupational Therapy Evaluate & Treat Comment: Physician Instructions: Evaluate and treat Consult to Physical Therapy Evaluate & Treat Comment: Physician Instructions: postop TKA protocol Discharge provider: Michelle Johnson PA-C Exam Vital Signs (past 8 hours): - 11/10/22 07:00 11/10/22 07:00 Pulse Rate 78 Blood Pressure 133/73 Pulse Oximetry 93 Oxygen Delivery Method Room Air Fraction of Inspired Oxygen 32 SaO2/FiO2 Ratio 303 Oxygen Delivery Method Room Air Oxygen Flow Rate 0 Narrative Exam Narrative: Pleasant 67-year-old male. Awake, alert, and oriented. Intraoperative left knee Aquacel grossly clean, dry, and intact -very small amount of dried blood at incision line. Sree bandage intact. Strength and sensation intact bilateral lower extremities. Bilateral calves soft, compressible, nontender with no palpable cords or masses. [facility] Medical History Amputation finger Benign essential HTN Brain injury Chronic neck pain Chronic pelvic pain in male Compound fracture Dyslexia Fistula (~1987) HLD (hyperlipidemia) HTN (hypertension) Incomplete right bundle branch block (RBBB) (~2016) Medicare annual wellness visit, subsequent Migraines Neck fracture (~1985) Obesity (BMI 30.0-34.9) Osteoarthritis Prostate cancer Tinnitus Type 2 diabetes mellitus without complication, with no history of insulin use Vestibular dysfunction Surgical History H/O total knee replacement History of intraocular lens implant Hx of appendectomy Hx of bilateral inguinal hernia repair Hx of prostatectomy (~12/2015) Hx of tonsillectomy Social History household members: spouse Smoking Status: Never smoker alcohol intake: current Discharge Assessment & Plan Assessment and Plan Assessment: Patient is progressing well following left total knee arthroplasty, postop day 1 Plan of Treatment: Plan to work with physical therapy today, discharge home when safe and cleared. Continue outpatient physical therapy. He would a multimodal pain regimen. Patient already has postoperative pain medications. Continue aspirin 81 mg twice daily for 6 weeks. Follow up with Orthopedics 2 weeks after surgery. Discharge Plan Discharge Plan Patient Disposition: Home Provider Discharge Comment: Discharge when safe and cleared by Physical therapy Discharge orders & Medications Discharge Orders: Discharge (Order); Ordered 11/10/22 Ordered By: Michelle Johnson Prescriptions: Continued pravastatin 20 MG tablet 20 mg PO BEDTIME Qty: 0 meclizine 25 mg tablet 25 mg PO DAILY PRN (Reason: dizziness) Qty: 30 11RF methocarbamol 750 mg tablet 750 mg PO DAILYCC PRN (Reason: Muscle Spasm) acetaminophen-codeine 300-30 mg tablet 1 tab PO BEDTIME amlodipine 10 mg tablet 10 mg PO DAILY aspirin [Adult Low Dose Aspirin] 81 mg tablet,delayed release (DR/EC) 81 mg PO DAILY trazodone 100 mg Tablet 100 mg PO BEDTIME hydrochlorothiazide 25 mg Tablet 25 mg PO DAILY fexofenadine-pseudoephedrine [Brea-D 24 Hour] 180-240 mg Tablet Extended Release 24 Hr 1 tab PO QAM metformin 500 mg tablet extended release 24hr 500 mg PO BID Follow up/Referrals: Biju Zayas DO [Primary Care Provider] - Jennifer Santana MD [Physician] - 2 Weeks Diet/Activity/Treatments Diet: Diet as Tolerated Activity: Cold/Heat Therapy: Other treatments: Dressing/Wound care: -Remove the Sree wrap 48 hours after surgery. -Keep Aquacell dressing in place until postoperative follow-up office visit. -you may see some drainage on the bandage, this is ok. If it is leaking or saturated, then the dressing can be changed to clean gauze or a clean surgical dressing from a pharmacy or reinforced with additional gauze and paper tape or dressings over the top. Otherwise, just keep dressing in place until follow up. -Okay to shower. Keep wound out of direct water stream. No soaking or submerging until all the scabs fall off (approximately 6 weeks). -Please call the office if dressing becomes significantly wet, soiled, or saturated. Activities: -Weight-bearing as tolerated. Use front wheeled walker, and progress to cane when safe. -Continue with home exercises as directed by your physical therapist. -Elevate ?toes above the nose if you have significant swelling in your lower leg. (A wedge pillow is easiest.) -Ice your incision as needed for pain/inflammation/swelling. Protect your skin with a folded pillowcase. Follow-up: -Follow-up with your surgeon or PA in the office in 10-14 days after surgery. -Follow-up with your surgeon 6 weeks postoperatively. Call the office if you have chest pain, shortness of breath, significant swelling that will not resolve with elevating, fever over 101?, significantly worsening pain. [facility]: [phone] You have been discharged with medications. These have already been sent to your pharmacy. Pain include pain medications: Oxycodone take 5 mg orally every 4 hours as needed for pain. If your pain is more severe you may take up to 2 or a maximum 3 pills (15 mg) every 4 hours for pain. Take the smallest dose necessary. Narcotic medication can make you feel constipated. You can get bqvn-xdx-ychdwap stool softener such as docusate sodium-Colace at a pharmacy to help with this. You also have prescriptions for ibuprofen 800 mg take this 3 times a day for least the 1st 10 days after surgery to help with pain control. And acetaminophen (Tylenol) take 500-1000 mg 3 times a day for pain control. You also have a prescription for Zofran (ondansetron) this is a strong anti nausea medication that can be taken up to every 8 hours as needed for nausea Additionally will take a baby aspirin 81 mg twice a day (morning and night) to help prevent blood clots If you have been discharged with ketorolac (toradol) this is a strong anti-inflammatory, do not take ibuprofen/meloxicam/mortin or other NSAIDS while on ketorolac. Once your ketorolac prescription is finished, you may restart taking other NSAIDs again. narcotic pain medication, tylenol and aspirin are fine to continue while on ketorolac. Skin/Wound/Dressing Care Report to your healthcare provider any signs of infection, such as:: chills, fever, night sweats, unusual drainage and unusual redness Visit Report/Discharge Packet Instructions: DI for Knee Replacement, DI for Prescription Opioid Use Stand Alone Forms: Patient Portal/API, Surgery Discharge Discharge Data Primary Care Provider: Biju Zayas Attending Provider: Jennifer Santana
--- NOTE | 2022-11-10 11:38 | PT.IIE ---
Current Diagnoses Unilateral primary osteoarthritis, left knee (11/09/22) Surgery Performed Operation Date: 11/09/22 12:30 Actual Procedures p Total Knee Arthroplasty(Left) - Jennifer Santana MD Surgical History (Last Reviewed 11/10/22 @ 11:15 by Michelle Johnson PA-C) H/O total knee replacement History of intraocular lens implant Hx of appendectomy Hx of bilateral inguinal hernia repair Hx of prostatectomy (~12/2015) Hx of tonsillectomy Medical History (Last Reviewed 11/10/22 @ 11:15 by Michelle Johnson PA-C) Amputation finger Benign essential HTN Brain injury Chronic neck pain Chronic pelvic pain in male Compound fracture Dyslexia Fistula (~1987) HLD (hyperlipidemia) HTN (hypertension) Incomplete right bundle branch block (RBBB) (~2016) Medicare annual wellness visit, subsequent Migraines Neck fracture (~1985) Obesity (BMI 30.0-34.9) Osteoarthritis Prostate cancer Tinnitus Type 2 diabetes mellitus without complication, with no history of insulin use Vestibular dysfunction Physical Therapy Inpatient Evaluation/Re-Eval M1 PT/OT-IP Prior Functional Status Start: 11/10/22 13:38 Freq: NEEDED Status: Active Protocol: Document 11/10/22 11:38 AB (Rec: 11/10/22 13:51 AB [email or web address]) Medical Review Prior Functional Status Medical History Reviewed Yes Communication able to make needs known Mobility and Gait pt stated that he is independent with all mobilities and ambulation without AD Social History Household Members spouse Living Arrangements House Number of Floors (Floors) 3 or More Floors Number of Stairs To Enter/Railing? has 3 steps with wide bilateral rails to enter and can only hold on to one rail at a thime has 2 platform steps to step down to the TV room Home Environment High Toilet,Walk in Shower Home Equipment Front Wheel Walker,Straight Cane,Shower Seat without Backrest,Hand Held Shower Employment Status Retired M2 PT-IP Current Condition Start: 11/10/22 13:38 Freq: NEEDED Status: Active Protocol: Document 11/10/22 11:38 AB (Rec: 11/10/22 13:51 AB [email or web address]) Physical Therapy Current Condition Current Condition Evaluation Date 11/10/22 Treatment Diagnosis s/p L TKA; difficulty in walking Onset Date 11/09/22 M3 PT-IP Subjective Start: 11/10/22 13:38 Freq: NEEDED Status: Active Protocol: Document 11/10/22 11:38 AB (Rec: 11/10/22 13:51 AB [email or web address]) Subjective Physical Therapy Visit Type Type Initial Evaluation Visit Start Time 11:38 Visit Stop Time 12:36 Total Visit Minutes 58 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 0 Physical Therapy Visit Comments Patient Comments agreeable to do PT Therapy Pain Assessment Pain When Pain Assessed At Rest Pain Present Pain Present Pain Reported Location Left Knee Intensity 4 Scale Used increases to 6-7/10 with mobility Pain Behaviors Facial Grimacing,Guarding, Holding Area Pain Management Techniques Apply Cold,Distraction, Elevation,Modification of Treatment,Re-positioning, Timing of Activity with Medications M4 PT-IP Mobility and Gait Start: 11/10/22 13:38 Freq: NEEDED Status: Active Protocol: Document 11/10/22 11:38 AB (Rec: 11/10/22 13:51 AB [email or web address]) PT-Bed Mobility Assessment Supine to Sit Supine to Sit Independent PT-Transfer Assessment Sit to and From Stand Sit to and from Stand Contact Guard Assistance,1 Person Assistance,Use of Upper Extremities Equipment Transfer Assistive Device Gait Belt,Front Wheeled Walker Orthotic/Prosthetic Devices or Brace: No Transfers Transfer Destination Chair Transfer Technique ambulated Transfer Ability Level of Assist Contact Guard Assistance,1 Person Assistance,Use of Upper Extremities Comments Mobility Comments pt supine in bed. spouse in room. BP: 137/70 pt completed supine to sit SBA . able to sit on EOB SBA. completed sit to stand CGA and ambulated in room using FWW CGA ~ 15 ft and cues for L quads activation. pt sat back on EOB. caregiver training conducted. educated pt's spouse on use of safety belt and how to assist pt. spouse was able to put safety belt on pt and assisted pt with sit to stand CGA and ambulation in the hallway using FWW ~ 75 ft CGA. occasional instructions provided to spouse on how to cue pt. educated spouse and pt regarding stair climbing. pt completed up/down 3 steps holding on to L rail with B hands min A. spouse was able to safely assist pt. pt completed up/down platform step using FWW min A. spouse again able to assist. assisted pt back his room. ambulated from w/c to chair using FWW CGA. positioned pt on the chair. call light and table placed within reach. spouse and pt without any further concerns. Gait Assessment Gait Gait Assistance Required: Contact Guard Assist Distance (Feet) 75 Able to Maintain Weight Bearing Status Yes During Gait Assistive Devices Assistive Device Gait Belt,Front Wheeled Walker Orthotic/Prosthetic Devices or Brace: No Gait Deviations General Gait Pattern Antalgic,Decreased Stride Length,Decreased Feet Clearance Factors Limiting Gait Function Factors Limiting Gait Function Decreased Activity Tolerance, Decreased Strength,Difficulty Following Directions,Limited Range of Motion,Pain,Poor Balance,Poor Safety Awareness Stair Climbing Assessment Evaluation Level of Assist On Stairs Minimal Assistance,1 Person Assistance Devices Stair Climbing Assistive Devices Front Wheel Walker,Left Railing Technique/Endurance Stair Climbing Direction Ascend and Descend Stair Climbing Technique Step to Step Number of Steps Climbed 3 Query Text: Stair Climbing Set # Repetitions (reps) 1 Comments Stair Climbing Comments pls refer to mobility section for details PT-Balance Assessment Sitting Balance and Reactions Static Sitting Balance Ability Normal Dynamic Sitting Balance Ability Normal Standing Balance and Reactions Static Standing Balance Ability Fair Dynamic Standing Balance Ability Fair Device Used FWW M5 PT-IP Objective Assessments Start: 11/10/22 13:38 Freq: NEEDED Status: Active Protocol: Document 11/10/22 11:38 AB (Rec: 11/10/22 13:51 AB [email or web address]) Orientation Orientation/Cognition Level of Alertness Alert Orientation Name,Place,Situation Language Function Ability No Deficits Noted Safety Awareness Decreased Safety Awareness Memory Description No Deficits Noted Gross Range of Motion Lower Extremity ROM Impairments L knee flexion: ~ 60 deg L knee extension: ~ 20 deg less to 0 Strength Lower Extremity Strength Assessment Left Impaired Hip 3+/5 Knee 3+/5 Coordination Assessment Gross Coordination Gross Coordination WNL Sensation Assessment Sensation Gross Sensation WNL Muscle Tone Muscle Tone WNL Yes M6 PT-IP Treatment Start: 11/10/22 13:38 Freq: NEEDED Status: Active Protocol: Document 11/10/22 11:38 AB (Rec: 11/10/22 13:51 AB [email or web address]) Physical Therapy Treatment Exercises Exercises Heel Slides Education Education Provided Precautions,Weight Bearing Status,Post-Op Packet,Safety M7 PT-IP Assessment and Plan Start: 11/10/22 13:38 Freq: NEEDED Status: Active Protocol: Document 11/10/22 11:38 AB (Rec: 11/10/22 13:51 AB [email or web address]) PT Summary Assessment and Plan Potential Rehabilitation Potential Fair Status of Condition at Evaluation Evolving Summary Impairments Pain,ROM,Strength,Balance, Coordination,Sensation,Tone, Cognition,Bed Mobility, Transfers,Gait,Activity Tolerance Assessment Summary pt is a 67 y/o male who underwent L TKA POD1. pt requiring CGA to min A with mobility using FWW. caregiver training conducted and spouse was able to safely assist pt with mobility. pt plans to go home and has outpt PT set up. pt may go home when medically stable. Goals Bed Mobility Goal Independent Transfer Goal Independent,Front Wheeled Walker Gait Goal Independent,Front Wheel Walker Gait Distance 200 Other Goals up/down 3 steps 1 rail SBA up/down 2 platform steps using FWW SBA Days to Meet Goals 5 Frequency of Treatment Frequency Of Treatment Twice a Day Treatment Plan Physical Therapy Treatment Plan Bed Mobility Training,Transfer Training,Gait Training, Therapeutic Exercise,Balance Retraining,Post Op Education, Discharge Planning,Hot or Cold Pack,Neuromuscular Re-ed, Coordination Retraining,Manual Therapy Weight Bearing Status Weight Bearing Status Weight Bear as Tolerated Allowed Weight Bearing Amount (enter % LLE WBAT or #) (%) Recommendations To Nursing Amount of Assist Needed 1 Person Assist Discharge Recommendations PT Discharge Recommendations Home with Assistance, Outpatient PT Transportation Needs at Discharge Private Vehicle
== END 2022-11-10 14:46 | disposition home or self-care (01) ==
LOC: OR 10:20 → AC 10:21
PROVIDERS: PCP Family Medicine; Referring Provider Orthopaedic Surgery Foot and Ankle Surgery; Visit Provider Orthopaedic Surgery Foot and Ankle Surgery
PROC: 0SRD0JZ Replacement of Left Knee Joint with Synthetic Substitute, Open Approach (ICD-10-PCS; CPT 27447; principal; 2022-11-09 12:30)
DX: M17.12 Unilateral primary osteoarthritis, left knee (principal); I10 Essential (primary) hypertension
CPT/HCPCS: 27447; 36415; 73560; 82962; 94762; 97162; 97530; C1776; C9290; J0171; J0690; J1170; J1885; J2250; J2274; J2405; J2704; J3010

== ENCOUNTER → 2023-03-19 10:32 | Outpatient (CLI) | payer MEDICARE, OTHER, SELFPAY ==
[2022-11-09 16:01] VITALS: BMI 31.1
[2023-03-19 11:33] LABS: Add Manual Diff / Slide Review NO; Basophils Absolute Auto 100 /uL (0-100); Basophils Percent Auto 0.9 % (0-2); Eosinophils Absolute Auto 300 /uL (0-450); Eosinophils Percent Auto 4.5 % (2-4); Hematocrit 39.9 % (41-53); Hemoglobin 13.7 g/dL (13.5-17.5); Lymphocytes Absolute Auto 1700 /uL (1100-4500); Lymphocytes Percent Auto 28.6 % (25-40); Mean Corpuscular HGB Conc 34.5 % (30-36); Monocytes Absolute Auto 700 /uL (0-900); Monocytes Percent Auto 11.1 % (3-14); Neutrophils Absolute Auto 3300 /uL (1500-7000); Neutrophils Percent Auto 54.9 % (50-75); Platelet Count 293 X10^3/uL (150-400); Red Blood Cell Count 4.75 X10^6/uL (4.5-5.9); Red Cell Distribution Width 13.1 % (11.6-14.8); White Blood Cell Count 6.1 X10^3/uL (4.5-11.0)
[2023-03-19 11:58] LABS: C-Reactive Protein Quant 1.1 mg/dL (<1.0)
[2023-03-19 12:24] LABS: Erythrocyte Sedimentation Rate 8 MM/HR (0-15)
== END ==
LOC: LAB 10:34
PROVIDERS: PCP Family Medicine; Referring Provider Orthopaedic Surgery Foot and Ankle Surgery; Visit Provider Orthopaedic Surgery Foot and Ankle Surgery
DX: Z96.651 Presence of right artificial knee joint (principal)
CPT/HCPCS: 36415; 85025; 85651; 86140

== ENCOUNTER → 2023-03-29 07:49 | Outpatient (CLI) | payer MEDICARE, OTHER, SELFPAY ==
[2022-11-09 16:01] VITALS: BMI 31.1
--- NOTE | 2023-03-29 | DI.NM.S_ITS ---
PROCEDURE: [place] BONE 3 PHASE RADIOPHARMACEUTICAL: 19.4 mCi Tc-99m MDP IV. INDICATIONS: Pain in left knee TECHNIQUE: Multiple bone scintigrams were obtained after intravenous injection of Tc-99m MDP, including flow, blood pool, and delayed images centered to the region of interest. COMPARISON: [facility] [place], CR, XR KNEE 4+ VIEWS LEFT, 03/19/2023, 9:28. FINDINGS: On flow images, there is increased activity to the left knee. This is similar on blood pool images. On delayed images, asymmetric periarticular uptake is seen surrounding the left knee arthroplasty. There is only mild uptake surrounding the right knee arthroplasty. IMPRESSION: Three-phase positive bone scan surrounding the left knee arthroplasty, suspicious for infection/inflammation. Consider orthopedic follow-up. Dictated by: Ej Amanda M.D. on 03/29/2023 at 14:21 Approved by: Ej Amanda M.D. on 03/29/2023 at 14:23
== END ==
LOC: NUCM 07:50
PROVIDERS: PCP Family Medicine; Referring Provider Orthopaedic Surgery Foot and Ankle Surgery; Visit Provider Orthopaedic Surgery Foot and Ankle Surgery
DX: M25.562 Pain in left knee (principal); Z96.652 Presence of left artificial knee joint
CPT/HCPCS: 78315; A9503

== ENCOUNTER → 2023-05-24 11:09 | Outpatient (CLI) | payer MEDICARE, OTHER, SELFPAY ==
[2022-11-09 16:01] VITALS: BMI 31.1
--- NOTE | 2023-05-24 11:11 | DI.CT.S_ITS ---
PROCEDURE: CT CERVICAL SPINE WO CON INDICATIONS: Spinal stenosis, cervical region TECHNIQUE: Noncontrast 3 mm thick sections acquired from the skull base to the T4 level. Sagittal and coronal reformats were then constructed. For radiation dose reduction, the following was used: automated exposure control, adjustment of mA and/or kV according to patient size. COMPARISON: None. FINDINGS: Image quality: Excellent. Bones: Old fracture involving dens with up to 7 millimeter diastasis between the fractured dens fragment and body of T2. There is prior surgical fusion of spinous process of C1 through C3 levels with near complete bony fusion of the spinous processes. Straightening and mild reversal of normal cervical lordosis is seen. No acute fracture or dislocation. Visualized upper ribs are grossly intact. C2-3: Bilateral facet arthrosis is seen. Mild bilateral bony foraminal stenosis is likely present. No significant central canal stenosis. C3-4: Central disc bulge and bilateral facet hypertrophic changes are seen. No significant central canal stenosis. Mild right worse than left bilateral neural foraminal narrowing is seen. C4-5: Loss of disc height and degenerative endplate changes are seen. Dorsal disc osteophyte complex formation with bilateral facet hypertrophic changes are noted. No significant central canal stenosis. Nejg-ff-duemrprp bilateral neural foraminal narrowing is seen. C5-6: Loss of disc height, degenerative endplate changes and bilateral facet hypertrophic changes are seen. Dorsal disc osteophyte complex formation is noted causing moderate central canal stenosis and moderate to severe bilateral neural foraminal narrowing. C6-7: Loss of disc height and degenerative endplate changes are seen. Broad-based disc bulge and bilateral facet hypertrophic changes are noted with mkig-gc-uojtjdbd central canal stenosis and moderate to severe bilateral neural foraminal narrowing. C7-T1: Within normal limits. Soft tissues: Prevertebral soft tissues are normal in thickness. No paravertebral hematomas. No apical pneumothoraces. IMPRESSION: 1. Old nonunited dens fracture as above. Prior fusion of the spinous processes at C1 through C3 levels. No acute fracture or dislocation. No suspicious bony lesions. 2. Degenerative disc disease and bilateral facet hypertrophic changes throughout cervical spine causing various degrees of central canal stenosis and bilateral neural foraminal narrowing more notably at C5-6 and C6-7 levels as described above. 3. No gross paraspinous soft tissue abnormalities. Dictated by: Campos Pelaez M.D. on 05/24/2023 at 14:00 Approved by: Campos Pelaez M.D. on 05/24/2023 at 14:16
== END ==
PROVIDERS: PCP Family Medicine; Referring Provider Acupuncturist; Visit Provider Acupuncturist
DX: M48.02 Spinal stenosis, cervical region (principal); M50.31 Other cervical disc degeneration, high cervical region; S12.110S Anterior displaced Type II dens fracture, sequela
CPT/HCPCS: 72125

== ENCOUNTER → 2023-06-07 11:44 | Outpatient (CLI) | payer MEDICARE, OTHER, SELFPAY ==
[2022-11-09 16:01] VITALS: BMI 31.1
[2023-06-07 13:49] LABS: Cholesterol 201 mg/dL (140-199); HDL Cholesterol 70 mg/dL (40-60); LDL Cholesterol Calculated 111 mg/dL (<100); Triglycerides 98 mg/dL (35-150)
[2023-06-07 14:32] LABS: Prostate Specific Antigen Scrn < 0.064 ng/mL (0.1-4.0)
[2023-06-07 18:14] LABS: Creatinine Urine Random 164.5 mg/dL
[2023-06-07 18:19] LABS: Microalbumi Creatinin Ratio Ur 7.9 ug/mg CR (<30); Microalbumin Urine Random 1.3 mg/dL (0-1.6)
== END ==
PROVIDERS: PCP Family Medicine; Referring Provider Family Medicine; Visit Provider Family Medicine
DX: Z00.00 Encounter for general adult medical examination without abnormal findings (principal); E11.9 Type 2 diabetes mellitus without complications; Z12.5 Encounter for screening for malignant neoplasm of prostate; C61 Malignant neoplasm of prostate; I10 Essential (primary) hypertension; E78.5 Hyperlipidemia, unspecified
CPT/HCPCS: 36415; 80061; 82043; 82570; 83036; G0103

== ENCOUNTER → 2023-08-28 08:33 | Outpatient (CLI) | payer MEDICARE, OTHER, SELFPAY ==
[2022-11-09 16:01] VITALS: BMI 31.1
--- NOTE | 2023-08-28 | DI.NM.S_ITS ---
PROCEDURE: [place] BONE 3 PHASE RADIOPHARMACEUTICAL: 21.2 mCi Tc-99m MDP IV. INDICATIONS: Pain due to internal orthopedic prosthetic devices, implants TECHNIQUE: Multiple bone scintigrams were obtained after intravenous injection of Tc-99m MDP, including flow, blood pool, and delayed images centered to the region of interest. COMPARISON: [facility] [place], CR, XR KNEE ARTHRITIC SERIES BI, 08/22/2022, 14:43. [facility] [place], CR, XR KNEE 4+ VIEWS LEFT, 07/25/2023, 9:26. [place], [place], [place] BONE 3 PHASE, 03/29/2023, 8:22. FINDINGS: Triphasic radiotracer uptake surrounding the left knee arthroplasty. IMPRESSION: Triphasic radiotracer uptake surrounding the left knee arthroplasty, concerning for loosening versus infection. Dictated by: Sheldon Zayas M.D. on 08/28/2023 at 14:09 Approved by: Sheldon Zayas M.D. on 08/28/2023 at 14:10
== END ==
PROVIDERS: PCP Family Medicine; Referring Provider Orthopaedic Surgery Foot and Ankle Surgery; Visit Provider Orthopaedic Surgery Foot and Ankle Surgery
DX: T84.84XA Pain due to internal orthopedic prosthetic devices, implants and grafts, initial encounter (principal)
CPT/HCPCS: 78315; A9503

== ENCOUNTER → 2023-09-05 11:55 | Outpatient (CLI) | payer MEDICARE, OTHER, SELFPAY ==
[2022-11-09 16:01] VITALS: BMI 31.1
--- NOTE | 2023-09-05 11:57 | DI.RAD.S_ITS ---
PROCEDURE: XR THORACIC SPINE 3V INDICATIONS: SPINE PAIN TECHNIQUE: 3 views of the thoracic spine were acquired. COMPARISON: None. FINDINGS: Bones: Jsbx-fx-ophrmqpu diffuse spondylosis, with disc space height loss and osteophytes. There is nonacute appearing wedging, minimal, of multiple thoracic vertebral bodies. No acute appearing height loss or traumatic subluxation. The cervical thoracic junction is not well seen even on swimmer's view. Partially seen cervical spondylosis also present. Soft tissues: No suspicious calcifications. Aortic calcifications are present. IMPRESSION: Gxkp-sm-ulxzxymy diffuse spondylotic changes. If there is high concern for further derangement, consider MRI evaluation. Dictated by: Ej Amanda M.D. on 09/05/2023 at 17:09 Approved by: Ej Amanda M.D. on 09/05/2023 at 17:10
== END ==
PROVIDERS: PCP Family Medicine; Referring Provider Acupuncturist; Visit Provider Acupuncturist
DX: M47.814 Spondylosis without myelopathy or radiculopathy, thoracic region (principal); M54.6 Pain in thoracic spine
CPT/HCPCS: 72072

== ENCOUNTER → 2023-10-11 10:40 | Outpatient (CLI) | payer MEDICARE, OTHER, SELFPAY ==
[2022-11-09 16:01] VITALS: BMI 31.1
--- NOTE | 2023-10-11 | DI.CT.S_ITS ---
PROCEDURE: CT SHOULDER RIGHT WITH CON INDICATIONS: Impingement syndrome of right shoulder TECHNIQUE: After the intra-articular administration of 12 mL of dilute non-ionic contrast, 1-1.5 mm thick sections acquired from the acromioclavicular joint to the inferior scapula, with coronal and sagittal reformatting. COMPARISON: [facility] [place], CR, XR SHOULDER 2+ VIEWS RIGHT, 10/07/2023, 15:29. [facility], , [place] SHOULDER INJECTION MR/CT RT, 10/11/2023, 9:56. FINDINGS: Image quality: Excellent. Injected contrast material opacifies the subacromial/subdeltoid bursa without significant contrast material seen within the glenohumeral joint space. Rotator cuff: There is at least high-grade partial bursal sided tearing of the supraspinatus tendon and the anterior fibers of the infraspinatus tendon tendon retraction measures up to 1.3 cm. However, no injected contrast material is seen within the glenohumeral joint space, and some articular sided fibers may remain in continuity. No full-thickness tearing of the teres minor or subscapularis tendons. The rotator cuff musculature is normal in bulk without significant atrophy. Bones: No acute osseous fracture or dislocation. Moderate joint space narrowing is seen in the glenohumeral joint with marginal osteophyte formation. Humeral head is high riding and nearly abuts the undersurface of the acromion. Nnbu-vs-rhswexok degenerative changes at the acromioclavicular joint. There is downsloping of the lateral acromion. Degenerative changes are seen in the spine. Visualized ribs are intact. Soft tissues: Glenohumeral articular cartilages and labrum are not well evaluated due to lack of glenohumeral contrast material. No filling defect is seen in the subacromial/subdeltoid bursa. Extravasated contrast material is seen within the overlying deltoid muscle likely related to the arthrogram injection. There is a small amount of soft tissue gas related to the arthrogram injection. The biceps long head tendon is not well visualized. Visualized musculature is normal in bulk. Included portions of the right lung are clear. IMPRESSION: 1. Injected contrast material opacifies the subacromial/subdeltoid bursa without opacification of the glenohumeral joint space. If indicated clinically, repeat injection could be performed for evaluation of the internal structures of the glenohumeral joint. 2. At least high-grade partial bursal sided tearing of the supraspinatus tendon and the anterior portion of the infraspinatus tendon at their distal insertions with retraction of torn tendon fibers by up to 1.3 cm. No contrast communication is seen with the glenohumeral joint, suggesting some articular sided fibers may remain in continuity. Humeral head is high riding. 3. Moderate glenohumeral osteoarthrosis. 4. Cryd-pd-skqksevp acromioclavicular joint osteoarthrosis. Downsloping of the lateral acromion is noted with narrowing of the acromial humeral interval. Approved by: Eris James M.D. on 10/15/2023 at 11:04
--- NOTE | 2023-10-11 | DI.RAD.S_ITS ---
PROCEDURE: [place] SHOULDER INJECTION MR/CT RT INDICATIONS: Impingement syndrome of right shoulder COMPARISON: None. TECHNIQUE: The indications, alternatives, benefits, risks, and complications of the procedure were explained to the patient. Written informed consent was obtained and placed in the chart. The shoulder was examined fluoroscopically and a site for needle placement chosen for entry into the glenohumeral joint from an anterior approach. The skin was prepped and draped in a sterile fashion, and 1% lidocaine infiltrated from skin down to joint capsule. A spinal needle was inserted into the glenohumeral joint, and a small amount of iodinated contrast media injected to confirm intra-articular placement of the needle tip. This was followed by approximately 12 mL of iodinated contrast. The needle was removed and a dressing was applied. The patient was given postprocedural instructions and sent to the CT suite for imaging. FINDINGS: A single fluoroscopic spot image demonstrates intra-articular location of injected iodinated contrast. IMPRESSION: Successful fluoroscopically guided administration of iodinated contrast solution into the shoulder joint for CT arthrogram. Dictated by: Marky Wilburn M.D. on 10/11/2023 at 14:43 Approved by: Marky Wilburn M.D. on 10/11/2023 at 14:43
[2023-10-11] MEDS: LIDOCAINE 1% 20 ML INJ (11:26)
== END ==
LOC: RAD 10:41
PROVIDERS: PCP Family Medicine; Referring Provider Orthopaedic Surgery; Visit Provider Orthopaedic Surgery
DX: M75.111 Incomplete rotator cuff tear or rupture of right shoulder, not specified as traumatic (principal); M19.011 Primary osteoarthritis, right shoulder; M75.41 Impingement syndrome of right shoulder
CPT/HCPCS: 23350; 73040; 73201; Q9967

== ENCOUNTER → 2023-10-11 10:42 | Outpatient (CLI) | payer MEDICARE, OTHER, SELFPAY ==
[2022-11-09 16:01] VITALS: BMI 31.1
--- NOTE | 2023-10-11 | DI.CT.S_ITS ---
PROCEDURE: CT THORACIC SPINE WO CON INDICATIONS: Pain in thoracic spine TECHNIQUE: Noncontrast 3 mm thick sections acquired through the region of interest in the thoracic spine. Sagittal and coronal reformats were then constructed. For radiation dose reduction, the following was used: automated exposure control. COMPARISON: None. FINDINGS: Image quality: Excellent. Bones: Minimal multilevel retrolisthesis and anterolisthesis. No acute vertebral body compression fractures. Schmorl node within the midthoracic spine. Multilevel disc height loss. No suspicious sclerotic or lytic bony lesions. Central spinal canal is of normal overall caliber. Questionable moderate spinal canal stenosis at T2-T3. No appreciable foraminal stenosis within the limitations of a CT study. Soft tissues: No paravertebral masses or hematomas. Visualized posteromedial lungs appear clear. There is a 0.9 cm hypodense lesion within the right hepatic lobe which is too small to characterize. Small hiatal hernia. IMPRESSION: 1. No evidence for an acute fracture or subluxation. 2. Minimal multilevel retrolisthesis and anterolisthesis. 3. There is questionable moderate spinal canal stenosis at T2-T3. If there is concern for a spinal cord compression, MRI of the thoracic spine can be obtained clinically indicated. 4. There is a 0.9 cm hypodense lesion within the right hepatic lobe which is too small to characterize. If clinically indicated, MRI of the liver can be obtained for further characterization. Dictated by: Marky Wilburn M.D. on 10/11/2023 at 16:23 Approved by: Marky Wilburn M.D. on 10/11/2023 at 16:45
== END ==
LOC: CT 10:43
PROVIDERS: PCP Family Medicine; Referring Provider Acupuncturist; Visit Provider Acupuncturist
DX: M51.44 Schmorl's nodes, thoracic region (principal); M54.6 Pain in thoracic spine; K44.9 Diaphragmatic hernia without obstruction or gangrene; K76.9 Liver disease, unspecified
CPT/HCPCS: 23350; 72128; 73040; 73201; Q9967

== ENCOUNTER → 2023-10-23 10:37 | Outpatient (CLI) | payer MEDICARE, OTHER, SELFPAY ==
[2022-11-09 16:01] VITALS: BMI 31.1
--- NOTE | 2023-10-23 10:58 | EKG_ITS ---
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: ANNIE : 1955 Requested By: Order Number: [id number] Reading MD: Ilya Delgado Measurements Intervals [place] Rate: 85 P: 24 PA: 164 QRS: -47 QRSD: 100 T: -2 QT: 364 QTc: 433 Interpretive Statements Sinus rhythm with premature atrial complexes RSR' or QR pattern in V1 suggests right ventricular conduction delay Left anterior fascicular block Minimal voltage criteria for LVH, may be normal variant ( R in aVL ) Cannot rule out Inferior infarct (masked by fascicular block?) , age undetermined Anterior infarct , age undetermined Electronically Signed On 10-23-2023 14:36:53 PDT by Ilya Delgado
[2023-10-23 11:46] LABS: Add Manual Diff / Slide Review NO; Basophils Absolute Auto 100 /uL (0-100); Basophils Percent Auto 1.1 % (0-2); Eosinophils Absolute Auto 400 /uL (0-450); Eosinophils Percent Auto 4.9 % (2-4); Hematocrit 42.1 % (41-53); Hemoglobin 14.8 g/dL (13.5-17.5); Lymphocytes Absolute Auto 2000 /uL (1100-4500); Lymphocytes Percent Auto 24.5 % (25-40); Mean Corpuscular HGB Conc 35.2 % (30-36); Mean Corpuscular Hemoglobin 30.5 PG (26-34); Mean Corpuscular Volume 86.8 fL (80-100); Monocytes Absolute Auto 800 /uL (0-900); Monocytes Percent Auto 10.3 % (3-14); Neutrophils Absolute Auto 4900 /uL (1500-7000); Neutrophils Percent Auto 59.2 % (50-75); Platelet Count 334 X10^3/uL (150-400); Red Blood Cell Count 4.85 X10^6/uL (4.5-5.9); Red Cell Distribution Width 12.8 % (11.6-14.8); White Blood Cell Count 8.2 X10^3/uL (4.5-11.0)
[2023-10-23 12:44] LABS: BUN Creatinine Ratio 23.7 (6-22); Blood Urea Nitrogen 18 mg/dL (9-20); Calcium 9.7 mg/dL (8.4-10.2); Carbon Dioxide 26 mmol/L (22-32); Chloride 103 mmol/L (98-107); Estimated Glomerular Filt Rate > 60 mL/min (>60); Glucose 129 mg/dL (80-110); HEMOLYSIS 18 (0-50); Potassium 3.4 mmol/L (3.4-5.1); Sodium 141 mmol/L (137-145)
== END ==
PROVIDERS: PCP Family Medicine; Referring Provider Orthopaedic Surgery; Visit Provider Orthopaedic Surgery
DX: Z01.818 Encounter for other preprocedural examination (principal); Z01.812 Encounter for preprocedural laboratory examination
CPT/HCPCS: 36415; 80048; 85025; 93005

== ENCOUNTER → 2023-11-19 15:27 | Outpatient (CLI) | payer MEDICARE, OTHER, SELFPAY ==
[2022-11-09 16:01] VITALS: BMI 31.1
[2023-11-19 19:50] LABS: Hemoglobin A1C% w Est Avg Glu 5.7 % (4.0-6.0)
== END ==
LOC: LAB 15:28
PROVIDERS: PCP Family Medicine; Referring Provider Family Medicine; Visit Provider Family Medicine
DX: E11.9 Type 2 diabetes mellitus without complications (principal)
CPT/HCPCS: 36415; 83036

== ENCOUNTER → 2023-11-29 14:03 | Outpatient (CLI) | payer MEDICARE, OTHER, SELFPAY ==
[2022-11-09 16:01] VITALS: BMI 31.1
--- NOTE | 2023-11-29 | DI.CT.S_ITS ---
PROCEDURE: CT SHOULDER RIGHT WITHOUT CON INDICATIONS: ARTHRITIS OF RIGHT GLENOHUMERAL JOINT TECHNIQUE: Noncontrast 0.75 mm thick sections acquired from the acromioclavicular joint to the inferior scapula, with coronal and sagittal reformatting. COMPARISON: [facility], CT, CT SHOULDER RIGHT WITH CON, 10/11/2023, 11:16. FINDINGS: Image quality: Excellent. Bones: No significant degenerative changes acromioclavicular joint. Lateral downsloping of the acromion. Mild degenerative change of the glenohumeral joint. Mild superior subluxation of the humeral head, suggestive rotator cuff pathology. Mild cortical irregularity at the greater tuberosity, suggestive rotator cuff pathology as well. No glenoid retroversion. No acute fracture or dislocation of the right shoulder. Cervical facet arthropathy, partially visualized. The visualized right ribs are intact. Moderate degenerative disease of the thoracic spine, incompletely evaluated. Soft tissues: Multiple sub 5 mm pulmonary nodule in the right lung apex, which may represent inflammatory versus infectious etiology. No significant glenohumeral effusion. No significant fatty atrophy of the rotator cuff musculature. IMPRESSION: 1. Mild degenerative changes of the glenohumeral joint. 2. Findings suggestive of rotator cuff pathology. 3. Multiple sub 5 mm pulmonary nodules in the right lung apex, which may represent inflammatory versus infectious etiology. Recommend optional CT chest follow-up in 12 months if patient is at high risk for lung cancer. Dictated by: Tammie Hernandez M.D. on 11/29/2023 at 17:09 Approved by: Tammie Hernandez M.D. on 11/29/2023 at 17:18
== END ==
PROVIDERS: Family Provider Family Medicine; PCP Family Medicine; Referring Provider Orthopaedic Surgery; Visit Provider Orthopaedic Surgery
DX: M12.811 Other specific arthropathies, not elsewhere classified, right shoulder (principal); R91.8 Other nonspecific abnormal finding of lung field; M47.812 Spondylosis without myelopathy or radiculopathy, cervical region
CPT/HCPCS: 73200

== ENCOUNTER 2023-12-12 12:03 | Day surgery (SDC) | payer MEDICARE, OTHER, SELFPAY ==
[2022-11-09 16:01] VITALS: BMI 31.1
[2023-12-02 09:38] VITALS: BMI 27.0
[2023-12-12] VITALS (7 sets, daily range): BP systolic 123–143; BP diastolic 65–81; PULSE 74–83; RESP 9–22; TEMP 36.3–36.4; O2SAT 94–97; BMI 27.0
--- NOTE | 2023-12-12 | DI.RAD.S_ITS ---
PROCEDURE: XR SHOULDER RT 1V INDICATIONS: POST OP TOTAL SHOULDER TECHNIQUE: 1 views of the shoulder were acquired. COMPARISON: None. FINDINGS: Bones: Patient is status post reverse right shoulder arthroplasty. Right shoulder alignment is anatomic. No acute fracture or dislocation. Soft tissues: Expected postsurgical changes are seen in right shoulder soft tissue. IMPRESSION: Postop changes from right shoulder reverse arthroplasty with anatomic shoulder alignment. Dictated by: Campos Pelaez M.D. on 12/12/2023 at 17:06 Approved by: Campos Pelaez M.D. on 12/12/2023 at 17:07
--- NOTE | 2023-12-12 13:20 | PM.PREOP ---
Pre-operative Note Interval Note History & Physical reviewed/Exam performed by Physician: Yes Changes to H&P: No
[2023-12-12] MEDS: ACETAMINOPHEN 325 MG TABLET 975 MG PO (13:26)
[2023-12-12] MEDS: LACTATED RINGERS 1,000 ML 42 ML IV (13:31)
--- NOTE | 2023-12-12 13:50 | SUR.OPER ---
Beach chair with Schlein shoulder positioner. Lower body on padded OR bed. Head in foam padded head cradle, secured with straps. Non-operative arm secured <90 degrees abduction. Pillow under knees. Safety belt at thigh. Cloth tape over blanket over lower legs.
--- NOTE | 2023-12-12 13:59 | SUR.PREOP ---
Block start time [1349] . time out at 1345. Monitoring initiated and maintained throughout procedure. Oxygen and medications given per anesthesiologist instructions. Patient remained stable throughout procedure, no adverse reactions noted. Block end time [1351].
[2023-12-12] MEDS: CEFAZOLIN 2 GM/100 ML PREMIX 100 ML IV (14:02)
[2023-12-12] MEDS: TRANEXAMIC ACID 1,000 MG VIAL 1000 MG INJ (14:28)
[2023-12-12] MEDS: BUPIVACAINE 0.25% W/ EPI (PF) 10 ML VIAL 20 ML INJ (14:47)
--- NOTE | 2023-12-12 15:38 | PM.OP.1 ---
Operative Date/Time/Diagnoses Date of procedure: 12/12/23 Time of procedure: 15:39 Pre-op diagnosis: Right cuff tear arthropathy Post-op diagnosis: same Procedure & Clinicians Procedure: Right reverse total shoulder arthroplasty Same procedure as scheduled: Yes Indications: Indications: This is a 68-year-old male who has rotator cuff arthropathy. Symptoms have been present for years, insidious onset. Patient has failed a reasonable attempt at conservative therapy. After extensive discussion in clinic, they wished to go forward with surgery. Risks and benefits were described including the risk of infection, bleeding, damage to internal structures including nerves. We also discussed the risk of failure of surgery and the need for revision surgery as well as the risk of anesthesia. The patient expressed understanding with these risks and wished to go forward with surgery. Surgeon: Jeffrey Dwyer [employer] Middleware Architect: Danielle Fortune Click Yes if Unassisted: Yes Anesthesia Type: General Operative Notes Findings: Findings: Osteoarthritis of the glenoid and humeral head as well as a defient rotator cuff as noted on preoperative imaging and under direct visualization Closure Type: primary Specimen(s): none sent Prosthetic devices, grafts, tissues, transplants, or devices: Tornier implants Base plate: standard 25 mm, full wedge Glenosphere: 39 mm Stem: Perform 3+ Poly: +3 retentive Estimated Blood Loss (mL): 100 Blood products transfused: none Procedure in detail: Patient was seen in the preoperative holding unit. The correct right shoulder was identified and marked with my initials. Again we discussed the risks and benefits of surgery and they wished to go forward with surgery. The patient was brought back to the operating room and placed supine on the operating table. Smooth endotracheal intubation was performed by anesthesia. All prominences were padded and they were placed into the beach chair position. Intravenous antibiotics were given. The right shoulder was then prepped with the standard sterile preparation and draping. A time-out was then performed in my initials were again identified on the correct shoulder. 1 g of IV tranexamic acid was given. A standard deltopectoral incision was made. Skin flaps were made. The cephalic vein was identified and retracted laterally. This was protected throughout the remainder of the case. Sharp dissection was made along the deltoid, subacromial and subcoracoid space to release adhesions. The conjoined tendon was identified and the axillary nerve was palpated and continuous using the tug test. It was protected throughout the remainder of the case. A brown retractor was placed underneath the deltoid muscle and a darach retractor underneath the conjoint tendon. The subscapularis muscle was ntoed to be intact. The anterior circumflex artery and associated veins on the lower border of the subscapularis were identified and tied off using 0-Vicryl. The biceps tendon was identified in the bicipital groove. This was released from its sheath, and taken from its origin on the glenoid and tied into the pectoralis tendon for a solid tenodesis. We then began a subscapularis peel. The subscapularis was tagged with an Ethibond suture. A 360 degree circumferential release of the subscapularis was performed with protection of the axillary nerve. The coracohumeral ligament was released at the base of the coracoid. The shoulder was then dislocated. Osteophytes were removed using combination of rongeur and osteotome. The rotator cuff was noted to be insufficient. An intramedullary guide was used set at version of 20?. Using an oscillating saw a conservative humeral head cut was made. Impaction reamers were reamed up to a size 3 stem with a built-in angle 135?. A neck protector was placed. Attention was then turned to the glenoid. After retracting the humeral head posteriorly a circumferential release was performed of the capsule with protection of the axillary nerve. The labrum was then released starting at the biceps anchor and going around the rim a small amount of triceps was released from the inferior glenoid. A center guide pin was then placed using the guide, followed by Reamer. After adequate cartilage was removed the boss was reamed and the centeral hole was drilled and measured. The base plate was then implanted and screwed into place. The peripheral screws were then sequentially drilled, measured, and placed. A 39 glenosphere was then selected and screwed into place onto the base plate. Turning back to the humerus, the humeral head was delivered and trialed with a +3 retentive. The arm was taken through range of motion and this was felt to be stable. The trial was then removed and a dilute Betadine wash was then performed with 1 L of sterile saline. Before placing the final implant, drill holes were made in the bicipital groove for the subscapularis repair, and sutures were passed through the drill holes. The final stem was then impacted into the humerus. The shoulder was then reduced and again brought through range of motion and was felt to be stable. The subscapularis was then repaired using a modified racking hitch with nice loupes. The skin was closed with 2-0 vicryl and 3-0 Monocryl followed by Aquacel dressing. Patient was awoken from anesthesia and brought back to the postoperative recovery unit without issue. They were placed into a sling. Assisting participation: This operation could not have been safely performed (without compromising the technical results or length of the procedure) without the assistance of a skilled surgical services asst. The surgical services asst was medically necessary for proper positioning, retraction and manipulation of instruments, proper exposure, graft prep, and manipulation of tissue. Complications: none Post-operative Condition: stable Disposition: PACU Plan for aftercare: Postoperative instructions: Sling to remain on for 6 weeks. No external rotation past neutral for 6 weeks. Okay for the sling to come off for shower. Okay to shower over the Aquacel dressing. If any water gets underneath the dressing, remove the dressing. First postoperative visit in 2 weeks.
[2023-12-12] MEDS: OXYCODONE IR 5 MG TABLET PO ×2 (16:01→16:28)
[2023-12-12] MEDS: hydrOXYzine HCL 25 MG TABLET PO (16:27)
== END 2023-12-12 17:02 | disposition home or self-care (01) ==
PROVIDERS: Family Provider Family Medicine; PCP Family Medicine; Referring Provider Orthopaedic Surgery; Visit Provider Orthopaedic Surgery
PROC: (CPT 23472; principal; 2023-12-12 14:15)
DX: M19.011 Primary osteoarthritis, right shoulder (principal); G89.18 Other acute postprocedural pain; M25.711 Osteophyte, right shoulder
CPT/HCPCS: 23472; 64415; 73020; C1776; A9270; J0690; J1100; J2250; J2405; J2704; J3010

== ENCOUNTER → 2024-03-10 12:20 | Outpatient (CLI) | payer MEDICARE, OTHER, SELFPAY ==
[2022-11-09 16:01] VITALS: BMI 31.1
[2024-03-10 14:08] LABS: Testosterone 67.3 ng/dL (71.8-623)
[2024-03-10 14:11] LABS: Prostate Specific Antigen < 0.064 ng/mL (0.10-4.00)
== END ==
PROVIDERS: Family Provider Family Medicine; PCP Family Medicine; Referring Provider Urology; Visit Provider Urology
DX: C61 Malignant neoplasm of prostate (principal); R68.82 Decreased libido
CPT/HCPCS: 36415; 84153; 84403

== ENCOUNTER → 2024-03-17 09:31 | Outpatient (CLI) | payer MEDICARE, OTHER, SELFPAY ==
[2022-11-09 16:01] VITALS: BMI 31.1
[2024-03-17 10:48] LABS: Prolactin 6.5 ng/mL (3.7-17.9)
[2024-03-17 11:03] LABS: Testosterone 97.9 ng/dL (71.8-623)
[2024-03-17 14:35] LABS: Luteinizing Hormone 3.08 mIU/mL
== END ==
PROVIDERS: Family Provider Family Medicine; PCP Family Medicine; Referring Provider Urology; Visit Provider Urology
DX: R79.89 Other specified abnormal findings of blood chemistry (principal); R68.82 Decreased libido
CPT/HCPCS: 36415; 83001; 83002; 84146; 84403

== ENCOUNTER → 2024-03-24 09:46 | Outpatient (CLI) | payer MEDICARE, OTHER, SELFPAY ==
[2022-11-09 16:01] VITALS: BMI 31.1
[2024-03-24 12:04] LABS: Testosterone 108 ng/dL (71.8-623)
[2024-03-24 12:05] LABS: Prostate Specific Antigen < 0.064 ng/mL (0.10-4.00)
== END ==
PROVIDERS: Family Provider Family Medicine; PCP Family Medicine; Referring Provider Urology; Visit Provider Urology
DX: C61 Malignant neoplasm of prostate (principal); R79.89 Other specified abnormal findings of blood chemistry; R68.82 Decreased libido
CPT/HCPCS: 36415; 84153; 84403

== ENCOUNTER 2024-04-14 11:30 | Outpatient (RCR) | payer MEDICARE, OTHER, SELFPAY ==
[2022-11-09 16:01] VITALS: BMI 31.1
--- NOTE | 2024-02-25 17:22 | PT.OPPOC ---
Physical, Occupational & Speech Therapy At [facility] Current Diagnoses Stress incontinence (female) (male) (02/25/24) Male erectile dysfunction, unspecified (02/25/24) Pelvic muscle wasting (02/25/24) Other postprocedural complications and disorders of genitourinary system (02/25/24) Nocturia (02/25/24) Visit Care Team Role Provider Type Biju Zayas DO Family Provider Physician Primary Care Provider Specialty: Family Practice Address: [address] [place] [address], [address], [place], [address] Email: [email or web address] [email or web address] Attending Provider Physician Referring Provider Specialty: Urology Address: [address] [place] [address], [id number] Email: [email or web address] Plan Of Care PT-OP-B Current Condition Start: 02/25/24 08:10 Freq: Status: Active Protocol: Document 02/25/24 11:30 [facility] (Rec: 02/25/24 12:21 [facility] [id number]) Current Condition History of Current Condition Onset Date 2015 s/p prostatectomy History of Current Condition history of pelvic pain due to 3 bone graphs off the right iliac crest for a crest for a cervical fusion that was done 3 times. Prostatectomy on 2015 he moved from [place] and [place] and has surgery at [facility]. Leakage got better for awhile after surgery. However now it has returned. He wears a pad daily and only approx 1 year it will get to the point that the pad is full . Some days the pad is mostly dry. Lately his exercise level hasn't been much as he just had right sided shoulder replacement and is not able to lift over 10 lbs in November. He does 30 reps hold 2-3 count and does 2 or 3 holding 30 count. Sj notes he wakes up 1-2 times per night. He works on getting fiber in and takes a probiotic. Sj also reports sexual dysfunction s/p prostatectomy and low libido. This is a chief complaint of his. Treatment Goals Patient/Caregiver Goals pt would like to improve sexual function and decrease urinary leakage PT-OP-T Assessment and Plan Start: 02/25/24 08:10 Freq: Status: Active Protocol: Document 02/25/24 11:30 [facility] (Rec: 02/27/24 17:07 [facility] [id number]) Physical Therapy Assessment Rehab Potential Rehabilitation Potential Good Evaluation Complexity Number of Personal Factors/Comorbidities 0 Number of Body Systems Impaired 1-2 Clinical Presentation at Evaluation Stable Impairments Impairments Soft Tissue Mobility,Strength Other Impairments urinary stress incontinence and sexual dysfunction s/p prostatectomy Goals 3 Impairment low libido and sexual dysfunction Usp Goal (LTG) with pelvic floor strengthening exercises and hip mobility Sj reports improve with maintaining a erection. LTG Duration 8 weeks 2 Impairment urinary incontinence with increased daily activity Usp Goal (LTG) Sj reports a overall reduction in urinary stress incontinence symptoms LTG Duration 8 weeks 1 Impairment decreased endurance of the pelvic floor Short Term Goal (STG) Sj is able to sustain a pelvic floor muscle contraction x 10 seconds over 10 reps in supine STG Duration 4 weeks Md Urologist Goal (LTG) Sj is able to sustain a pelvic floor exercise 10 seconds in standing LTG Duration 8 weeks Assessment Summary Assessment Sj is a 68 year old male who presents to PT with stress incontinence symptoms s/p prostatectomy in 2016. Sj reports urinary incontinence did get better after surgery however he has not been as active due to a shoulder injury and he can tell he is weaker. He has days where he will stay dry all day but then other days when he is doing more he will note weakness. He deals with pelvic pain from 3 bones graphs on the right ilium for a cervical fusion. He is limited in his ability to engage in intimancy with his due to pain, sexual dysfunction, and low libido. Sj reports he often wakes 2 times per night to void. He has difficulty with constipation and bowel movements at times and prolonged sitting increases pelvic pain symptoms. I reviewed bladder irritants with Sj as he does drink 2 alcoholic beverages per day along with caffeine. He was educated in water intake to 6- 8 glasses per day. He did mention he had his testosterone levels checked however has not received the results back yet. This may be helpful to look at with his low libido. He has been working on pelvic floor exercises however he has only been doing 1-2 reps of long sustained pelvic floor contractions. I encouraged him to work on pelvic floor long holds 10 reps 2-3 times per day. He is a good candidate for EMG biofeedback and I explained this to him and he will think about trying it next visit. Sj is a good candidate for PT Physical Therapy Plan Frequency and Duration Frequency of Treatment 1x/Week Duration of treatment (weeks) 8 Plan of Care Start Date 02/25/24 Plan of Care End Date 04/21/24 Therapeutic Interventions Therapeutic Interventions Home Exercise Program,Patient/ Caregiver Education,Self-Care/ Home Management,Therapeutic Exercises Modalities Biofeedback Next Visit Focus/Plan Next Note Type Treatment Note Next Visit Plan If pt elise begin pelvic floor endurance training with EMG biofeedback, begin working on hip strengthening and stretches for the pelvis Plan of Care Dates Plan of Care Start Date 02/25/24 Plan of Care End Date 04/21/24 Electronically Signed by: Jennifer Walsh, PT 02/27/24 6600 If you are in agreement with this Plan of Care, please return a signed and dated copy. I have reviewed this Plan of Care and certify that the skilled therapy services above are required to meet the patient?s needs. Physician Signature Date Printed Name and Credentials Clinical Instructor Signature Printed Name and Credentials
--- NOTE | 2024-02-25 17:22 | PT.OIE ---
Current Diagnoses Stress incontinence (female) (male) (02/25/24) Male erectile dysfunction, unspecified (02/25/24) Pelvic muscle wasting (02/25/24) Other postprocedural complications and disorders of genitourinary system (02/25/24) Nocturia (02/25/24) Past Medical History (Last Updated 11/19/23 @ 15:12 by Biju Zayas DO) Amputation finger Benign essential HTN Brain injury Chronic neck pain Chronic pelvic pain in male Compound fracture Decreased libido Dyslexia Erectile dysfunction Erectile dysfunction after radical prostatectomy Fistula (~1987) HLD (hyperlipidemia) HTN (hypertension) Hx of migraine headaches Hx of osteoarthritis Incomplete right bundle branch block (RBBB) (~2016) Liver lesion Medicare annual wellness visit, subsequent Migraines Neck fracture (~1985) Obesity (BMI 30.0-34.9) Osteoarthritis Prostate cancer Stress incontinence after surgical procedure Tinnitus Type 2 diabetes mellitus without complication, with no history of insulin use Urinary incontinence Vestibular dysfunction Past Surgical History (Last Updated 07/17/23 @ 09:55 by Robert Meneses MD) H/O total knee replacement History of colon surgery History of intraocular lens implant Hx of appendectomy Hx of bilateral inguinal hernia repair Hx of fusion of cervical spine Hx of prostatectomy (~12/2015) Hx of tonsillectomy Visit Care Team Role Provider Type Biju Zayas DO Family Provider Physician Primary Care Provider Specialty: Family Practice Address: [address] [place] [address], [address], [facility] Email: [email or web address] Attending Provider Physician Referring Provider Specialty: Urology Address: [address] [place] [address], [facility] Email: [email or web address] Physical Therapy Initial Evaluation PT-OP-A Visit Information Start: 02/25/24 08:10 Freq: Status: Active Protocol: Document 02/25/24 11:35 [facility] (Rec: 02/25/24 12:21 [facility] [id number]) Out-Patient Physical Therapy Visit Information Visit Information Visit Type Initial Evaluation Visit Start Time 11:35 Visit Stop Time 12:15 Visit Number 1 PT-OP-B Current Condition Start: 02/25/24 08:10 Freq: Status: Active Protocol: Document 02/25/24 11:30 [facility] (Rec: 02/25/24 12:21 [facility] [id number]) Current Condition History of Current Condition Onset Date 2015 s/p prostatectomy History of Current Condition history of pelvic pain due to 3 bone graphs off the right iliac crest for a crest for a cervical fusion that was done 3 times. Prostatectomy on 2015 he moved from [place] and moved to [place] and has surgery at [facility]. Leakage got better for awhile after surgery. However now it has returned. He wears a pad daily and only approx 1 year it will get to the point that the pad is full . Some days the pad is mostly dry. Lately his exercise level hasn't been much as he just had right sided shoulder replacement and is not able to lift over 10 lbs in November. He does 30 reps hold 2-3 count and does 2 or 3 holding 30 count. Sj notes he wakes up 1-2 times per night. He works on getting fiber in and takes a probiotic. Sj also reports sexual dysfunction s/p prostatectomy and low libido. This is a chief complaint of his. Treatment Goals Patient/Caregiver Goals pt would like to improve sexual function and decrease urinary leakage PT-OP-I Pelvic Floor Start: 02/25/24 08:10 Freq: Status: Active Protocol: Document 02/25/24 11:30 [facility] (Rec: 02/27/24 17:07 REPLACED BY [facility] [id number]) Pelvic Floor Assessment Urine Pelvic Floor Surgery Yes: prostatectomy Other Urinary Symptoms leakage with upright activity or exericse in standing positions Leakage Size Small Leakage Cause Lifting Leaks Per Day 1 Voiding Frequency 6 Nocturia 2 Contraction Ability Voluntary Contraction Weak Voluntary Relaxation Weak Muscle Endurance (Seconds) 5 PT-OP-Q Treatments Start: 02/25/24 08:10 Freq: Status: Active Protocol: Document 02/25/24 16:29 [facility] (Rec: 02/25/24 16:29 REPLACED BY [facility] [id number]) Therapeutic Exercises Supine Exercises pelvic floor long holds Reps/Minutes x 10 reps 2 times per day PT-OP-T Assessment and Plan Start: 02/25/24 08:10 Freq: Status: Active Protocol: Document 02/25/24 11:30 [facility] (Rec: 02/27/24 17:07 REPLACED BY [facility] [id number]) Physical Therapy Assessment Rehab Potential Rehabilitation Potential Good Evaluation Complexity Number of Personal Factors/Comorbidities 0 Number of Body Systems Impaired 1-2 Clinical Presentation at Evaluation Stable Impairments Impairments Soft Tissue Mobility,Strength Other Impairments urinary stress incontinence and sexual dysfunction s/p prostatectomy Goals 3 Impairment low libido and sexual dysfunction [facility] Goal (LTG) with pelvic floor strengthening exercises and hip mobility Sj reports improve with maintaining a erection. LTG Duration 8 weeks 2 Impairment urinary incontinence with increased daily activity Box Folding Machine Operator Goal (LTG) Sj reports a overall reduction in urinary stress incontinence symptoms LTG Duration 8 weeks 1 Impairment decreased endurnace of the pelvic floor Short Term Goal (STG) Sj is able to sustain a pelvic floor msucle contraction x 10 seconds over 10 reps in supine STG Duration 4 weeks Box Folding Machine Operator Goal (LTG) Sj is able to sustain a pelvic floor exercise 10 seconds in standing LTG Duration 8 weeks Assessment Summary Assessment Sj is a 68 year old male who presents to PT with stress incontinence symptoms s/p prostatectomy in 2016. Sj reports urinary incontinence did get better after surgery however he has not been as active due to a shoulder injury and he can tell he is weaker. He has days where he will stay dry all day but then other days when he is doing more he will note weakness. He deals with pelvic pain from 3 bones graphs on the right ilium for a cervical fusion. He is limited in his ability to engage in intimancy with his due to pain, sexual dysfunction, and low libido. Sj reports he often wakes 2 times per night to void. He has difficulty with constipation and bowel movements at times and prolonged sitting increases pelvic pain symptoms. I reviewed bladder irritants with Sj as he does drink 2 alcoholic beverages per day along with caffeine. He was educated in water intake to 6- 8 glasses per day. He did mention he had his testosterone levels checked however has not received the results back yet. This may be helpful to look at with his low libido. He has been working on pelvic floor exercises however he has only been doing 1-2 reps of long sustained pelvic floor contractions. I encourged him to work on pelvic floor long holds 10 reps 2-3 times per day. He is a good candidate for EMG biofeedback and I explained this to him and he will think about trying it next visit. Sj is a good candidate for PT Physical Therapy Plan Frequency and Duration Frequency of Treatment 1x/Week Duration of treatment (weeks) 8 Plan of Care Start Date 02/25/24 Plan of Care End Date 04/21/24 Therapeutic Interventions Therapeutic Interventions Home Exercise Program,Patient/ Caregiver Education,Self-Care/ Home Management,Therapeutic Exercises Modalities Biofeedback Next Visit Focus/Plan Next Note Type Treatment Note Next Visit Plan If pt agress begin pelvic floor endurance training with EMG biofeedback, begin working on hip strengthening and stretches for the pelvis
--- NOTE | 2024-03-10 16:46 | PT.OTN ---
Current Diagnoses Stress incontinence (female) (male) (03/10/24) Male erectile dysfunction, unspecified (03/10/24) Pelvic muscle wasting (03/10/24) Other postprocedural complications and disorders of genitourinary system (03/10/24) Nocturia (03/10/24) Physical Therapy Treatment Note PT-OP-A Visit Information Start: 02/25/24 08:10 Freq: Status: Active Protocol: Document 03/10/24 16:38 [facility] (Rec: 03/10/24 16:39 [facility] [id number]) Out-Patient Physical Therapy Visit Information Visit Information Visit Type Treatment Note Visit Start Time 11:35 Visit Stop Time 12:15 Visit Number 2 PT-OP-B Current Condition Start: 02/25/24 08:10 Freq: Status: Active Protocol: Document 02/25/24 11:30 [facility] (Rec: 02/25/24 12:21 [facility] [id number]) Current Condition History of Current Condition Onset Date 2015 s/p prostatectomy History of Current Condition history of pelvic pain due to 3 bone graphs off the right iliac crest for a crest for a cervical fusion that was done 3 times. Prostatectomy on 2015 he moved from [place] and moved to [place] and has surgery at [facility]. Leakage got better for awhile after surgery. However now it has returned. He wears a pad daily and only approx 1 year it will get to the point that the pad is full . Some days the pad is mostly dry. Lately his exercise level hasn't been much as he just had right sided shoulder replacement and is not able to lift over 10 lbs in November. He does 30 reps hold 2-3 count and does 2 or 3 holding 30 count. jS notes he wakes up 1-2 times per night. He works on getting fiber in and takes a probiotic. Sj also reports sexual dysfunction s/p prostatectomy and low libido. This is a chief complaint of his. Treatment Goals Patient/Caregiver Goals pt would like to improve sexual function and decrease urinary leakage PT-OP-C Subjective Start: 02/25/24 08:10 Freq: Status: Active Protocol: Document 03/10/24 11:35 [facility] (Rec: 03/10/24 12:09 [facility] [id number]) OP-PT Subjective Patient Comments Patient Comments pt feel like his symptoms have been a little less he is on limited duty due to a knee procedure and is on restriction for a couple of weeks. PT-OP-I Pelvic Floor Start: 02/25/24 08:10 Freq: Status: Active Protocol: Document 02/25/24 11:30 [facility] (Rec: 02/27/24 17:07 [facility] [id number]) Pelvic Floor Assessment Urine Pelvic Floor Surgery Yes: prostatectomy Other Urinary Symptoms leakage with upright activity or exericse in standing positions Leakage Size Small Leakage Cause Lifting Leaks Per Day 1 Voiding Frequency 6 Nocturia 2 Contraction Ability Voluntary Contraction Weak Voluntary Relaxation Weak Muscle Endurance (Seconds) 5 PT-OP-Q Treatments Start: 02/25/24 08:10 Freq: Status: Active Protocol: Document 03/10/24 16:40 [facility] (Rec: 03/10/24 16:42 [facility] [id number]) Therapeutic Exercises Supine Exercises hip abduction with theraband Comments pt was just shown this today as he had vascular work done yesterday left LE supine ball squeeze with pelvic floor Reps/Minutes 10 reps holding 5 seconds pelvic floor long holds Reps/Minutes x 10 reps holding 10 sec and relaxing 10 sec Comments cues to pull up at the anterior pelvic floor Sidelying Exercises clam shell Reps/Minutes x 10 Comments right side only today due to vascular work done Self-Care/Home Management Treatment Education Patient Education Home Exercise Program Other Education exercise prescription of 10 reps 3 times per day to not over fatigue the pelvic floor PT-OP-T Assessment and Plan Start: 02/25/24 08:10 Freq: Status: Active Protocol: Document 03/10/24 11:35 [facility] (Rec: 03/10/24 16:46 [facility] [id number]) Physical Therapy Assessment Assessment Summary Assessment Darryn had had vascular work done on left LE so he was shown clam shells and lateral hip abduction work but advised to wait until he was free from restrictions from his doctor on the left side. He did ask about testosterone for libido and I told him if he was low it could be helpful and to talk to his doctor about this. He also talks about his not being faithful in their marriage and we discussed counsling for him today as well. He needed cues to facilitate the anterior pelvic floor and was given cues of lifting through the testicles. I encourage him to use a hand help mirror at home to help with pelvic floor facilitation. He wished to hold off on EMG biofeedback today Physical Therapy Plan Frequency and Duration Frequency of Treatment 1x/Week Duration of treatment (weeks) 8 Plan of Care Start Date 02/25/24 Plan of Care End Date 04/21/24 Therapeutic Interventions Therapeutic Interventions Home Exercise Program,Patient/ Caregiver Education,Self-Care/ Home Management,Therapeutic Exercises Modalities Biofeedback Next Visit Focus/Plan Next Note Type Treatment Note Next Visit Plan begin with hip stretches next visit, pelvic floor endurance training and hip strengthening
--- NOTE | 2024-03-17 08:32 | PT.OTN ---
Current Diagnoses Stress incontinence (female) (male) (03/17/24) Male erectile dysfunction, unspecified (03/17/24) Pelvic muscle wasting (03/17/24) Other postprocedural complications and disorders of genitourinary system (03/17/24) Nocturia (03/17/24) Physical Therapy Treatment Note PT-OP-A Visit Information Start: 02/25/24 08:10 Freq: Status: Active Protocol: Document 03/17/24 11:35 [facility] (Rec: 03/17/24 12:19 [facility] [id number]) Out-Patient Physical Therapy Visit Information Visit Information Visit Type Treatment Note Visit Start Time 11:33 Visit Stop Time 12:12 Visit Number 3 PT-OP-B Current Condition Start: 02/25/24 08:10 Freq: Status: Active Protocol: Document 02/25/24 11:30 [facility] (Rec: 02/25/24 12:21 [facility] [id number]) Current Condition History of Current Condition Onset Date 2015 s/p prostatectomy History of Current Condition history of pelvic pain due to 3 bone graphs off the right iliac crest for a crest for a cervical fusion that was done 3 times. Prostatectomy on 2015 he moved from [place] and moved to [place] and has surgery at [facility]. Leakage got better for awhile after surgery. However now it has returned. He wears a pad daily and only approx 1 year it will get to the point that the pad is full . Some days the pad is mostly dry. Lately his exercise level hasn't been much as he just had right sided shoulder replacement and is not able to lift over 10 lbs in November. He does 30 reps hold 2-3 count and does 2 or 3 holding 30 count. Sj notes he wakes up 1-2 times per night. He works on getting fiber in and takes a probiotic. Sj also reports sexual dysfunction s/p prostatectomy and low libido. This is a chief complaint of his. Treatment Goals Patient/Caregiver Goals pt would like to improve sexual function and decrease urinary leakage PT-OP-C Subjective Start: 02/25/24 08:10 Freq: Status: Active Protocol: Document 03/17/24 11:35 [facility] (Rec: 03/17/24 12:19 [facility] [id number]) OP-PT Subjective Patient Comments Patient Comments pt notes due to his bone graphs at the ilium the hip exercise with the bands aggravated it. He was able to do the isolations Sj saw Dr Meneses last week. He feels last week he was having more difficulty staying dry but he feels this week is better. PT-OP-I Pelvic Floor Start: 02/25/24 08:10 Freq: Status: Active Protocol: Document 02/25/24 11:30 [facility] (Rec: 02/27/24 17:07 [facility] [id number]) Pelvic Floor Assessment Urine Pelvic Floor Surgery Yes: prostatectomy Other Urinary Symptoms leakage with upright activity or exericse in standing positions Leakage Size Small Leakage Cause Lifting Leaks Per Day 1 Voiding Frequency 6 Nocturia 2 Contraction Ability Voluntary Contraction Weak Voluntary Relaxation Weak Muscle Endurance (Seconds) 5 PT-OP-Q Treatments Start: 02/25/24 08:10 Freq: Status: Active Protocol: Document 03/17/24 11:35 [facility] (Rec: 03/17/24 12:19 [facility] [id number]) Therapeutic Exercises Supine Exercises hip abduction with theraband Supine Exercise Name tried legs straight Reps/Minutes 2 x 10 reps Comments no resistance at this time due to pain supine ball squeeze with pelvic floor Reps/Minutes 10 reps holding 5 seconds pelvic floor long holds Reps/Minutes x 10 reps holding 10 sec and relaxing 10 sec Comments cues to pull up at the anterior pelvic floor Other Exercises sit-stand with pelvic floor Reps/Minutes every time he stands Self-Care/Home Management Treatment Education Patient Education Home Exercise Program Other Education pt was educated on sit-stand with pelvic floor engagement as well as pelvic floor engagement with lifting. USe of the mirror for pelvic floor drawing up and holding was also reviewed PT-OP-T Assessment and Plan Start: 02/25/24 08:10 Freq: Status: Active Protocol: Document 03/17/24 11:35 [facility] (Rec: 03/17/24 12:19 [facility] [id number]) Physical Therapy Assessment Goals 3 Impairment low libido and sexual dysfunction Half-Way Goal (LTG) with pelvic floor strengthening exercises and hip mobility Sj reports improve with maintaining a erection. LTG Duration 8 weeks 2 Impairment urinary incontinence with increased daily activity Half-Way Goal (LTG) Sj reports a overall reduction in urinary stress incontinence symptoms LTG Duration 8 weeks 1 Impairment decreased endurnace of the pelvic floor Short Term Goal (STG) Sj is able to sustain a pelvic floor msucle contraction x 10 seconds over 10 reps in supine STG Duration 4 weeks Half-Way Goal (LTG) Sj is able to sustain a pelvic floor exercise 10 seconds in standing LTG Duration 8 weeks Assessment Summary Assessment The hip ER exercise irritated Don's right ilium where he has had the bone graph so this exercise was modified to legs straight with hip ER. He was shown sit-stand today with pelvic floor engagement Physical Therapy Plan Frequency and Duration Frequency of Treatment 1x/Week Duration of treatment (weeks) 8 Plan of Care Start Date 02/25/24 Plan of Care End Date 04/21/24 Therapeutic Interventions Therapeutic Interventions Home Exercise Program,Patient/ Caregiver Education,Self-Care/ Home Management,Therapeutic Exercises Modalities Biofeedback Next Visit Focus/Plan Next Note Type Treatment Note Next Visit Plan review all exercises next visit and check in with how right lateral hip is feeling.
--- NOTE | 2024-03-24 12:15 | PT.OTN ---
Current Diagnoses Stress incontinence (female) (male) (03/24/24) Male erectile dysfunction, unspecified (03/24/24) Pelvic muscle wasting (03/24/24) Other postprocedural complications and disorders of genitourinary system (03/24/24) Nocturia (03/24/24) Physical Therapy Treatment Note PT-OP-A Visit Information Start: 02/25/24 08:10 Freq: Status: Active Protocol: Document 03/24/24 11:39 [facility] (Rec: 03/24/24 12:14 [facility] [id number]) Out-Patient Physical Therapy Visit Information Visit Information Visit Type Treatment Note Visit Note pt needed to leave early for another appt Visit Start Time 11:35 Visit Stop Time 12:05 Visit Number 4 PT-OP-B Current Condition Start: 02/25/24 08:10 Freq: Status: Active Protocol: Document 02/25/24 11:30 [facility] (Rec: 02/25/24 12:21 [facility] [id number]) Current Condition History of Current Condition Onset Date 2015 s/p prostatectomy History of Current Condition history of pelvic pain due to 3 bone graphs off the right iliac crest for a crest for a cervical fusion that was done 3 times. Prostatectomy on 2015 he moved from [place] and moved to [place] and has surgery at [facility]. Leakage got better for awhile after surgery. However now it has returned. He wears a pad daily and only approx 1 year it will get to the point that the pad is full . Some days the pad is mostly dry. Lately his exercise level hasn't been much as he just had right sided shoulder replacement and is not able to lift over 10 lbs in November. He does 30 reps hold 2-3 count and does 2 or 3 holding 30 count. Sj notes he wakes up 1-2 times per night. He works on getting fiber in and takes a probiotic. Sj also reports sexual dysfunction s/p prostatectomy and low libido. This is a chief complaint of his. Treatment Goals Patient/Caregiver Goals pt would like to improve sexual function and decrease urinary leakage PT-OP-C Subjective Start: 02/25/24 08:10 Freq: Status: Active Protocol: Document 03/24/24 11:39 [facility] (Rec: 03/24/24 12:14 [facility] [id number]) OP-PT Subjective Patient Comments Patient Comments pt notes this has been his best week. He is doing his exercises 2 times per day. He is trying to work on tightening his pelvic floor prior to standing. Patient Reported Progress Improving PT-OP-I Pelvic Floor Start: 02/25/24 08:10 Freq: Status: Active Protocol: Document 02/25/24 11:30 [facility] (Rec: 02/27/24 17:07 [facility] [id number]) Pelvic Floor Assessment Urine Pelvic Floor Surgery Yes: prostatectomy Other Urinary Symptoms leakage with upright activity or exericse in standing positions Leakage Size Small Leakage Cause Lifting Leaks Per Day 1 Voiding Frequency 6 Nocturia 2 Contraction Ability Voluntary Contraction Weak Voluntary Relaxation Weak Muscle Endurance (Seconds) 5 PT-OP-Q Treatments Start: 02/25/24 08:10 Freq: Status: Active Protocol: Document 03/24/24 11:39 [facility] (Rec: 03/24/24 12:14 [facility] [id number]) Therapeutic Exercises Supine Exercises hip abduction with theraband Supine Exercise Name tried legs straight Reps/Minutes 2 x 10 reps Comments no resistance at this time due to pain supine ball squeeze with pelvic floor Supine Exercise Name HEP Reps/Minutes 10 reps holding 5 seconds pelvic floor long holds Supine Exercise Name HEP Reps/Minutes x 10 reps holding 10 sec and relaxing 10 sec Comments cues to pull up at the anterior pelvic floor Standing Exercises side steps at the counter top Reps/Minutes pt to work on 30 then 60 seconds of side steps Other Exercises sit-stand with pelvic floor Other Exercise Name Sj notes this is helping him to brace prior to standing Reps/Minutes every time he stands Self-Care/Home Management Treatment Education Patient Education Home Exercise Program Other Education pt was educated on sit-stand with pelvic floor engagement as well as pelvic floor engagement with lifting. I added in sidesteps for his HEP and Sj was given a handout with pictures PT-OP-T Assessment and Plan Start: 02/25/24 08:10 Freq: Status: Active Protocol: Document 03/24/24 11:39 [facility] (Rec: 03/24/24 12:14 [facility] [id number]) Physical Therapy Assessment Goals 3 Impairment low libido and sexual dysfunction Clinic Nurse Goal (LTG) with pelvic floor strengthening exercises and hip mobility Sj reports improvement with maintaining a erection. LTG Duration 8 weeks 2 Impairment urinary incontinence with increased daily activity Halfway Goal (LTG) Sj reports a overall reduction in urinary stress incontinence symptoms LTG Duration 8 weeks 1 Impairment decreased endurance of the pelvic floor Short Term Goal (STG) Sj is able to sustain a pelvic floor muscle contraction x 10 seconds over 10 reps in supine STG Duration 4 weeks Halfway Goal (LTG) Sj is able to sustain a pelvic floor exercise 10 seconds in standing LTG Duration 8 weeks Assessment Summary Assessment Sj tolerated his exercises better this week and his right hip tolerated hip rotation from a straight leg position much better. He will test out sidestepping and see how this works for him Physical Therapy Plan Frequency and Duration Frequency of Treatment 1x/Week Duration of treatment (weeks) 8 Plan of Care Start Date 02/25/24 Plan of Care End Date 04/21/24 Next Visit Focus/Plan Next Note Type Treatment Note Next Visit Plan check in with how Sj did with side steps at the counter
--- NOTE | 2024-03-31 12:14 | PT.OTN ---
Current Diagnoses Stress incontinence (female) (male) (03/31/24) Male erectile dysfunction, unspecified (03/31/24) Pelvic muscle wasting (03/31/24) Other postprocedural complications and disorders of genitourinary system (03/31/24) Nocturia (03/31/24) Physical Therapy Treatment Note PT-OP-A Visit Information Start: 02/25/24 08:10 Freq: Status: Active Protocol: Document 03/31/24 12:12 [facility] (Rec: 03/31/24 12:14 [facility] [id number]) Out-Patient Physical Therapy Visit Information Visit Information Visit Type Treatment Note Visit Start Time 11:35 Visit Stop Time 12:15 Visit Number 5 PT-OP-B Current Condition Start: 02/25/24 08:10 Freq: Status: Active Protocol: Document 02/25/24 11:30 [facility] (Rec: 02/25/24 12:21 [facility] [id number]) Current Condition History of Current Condition Onset Date 2015 s/p prostatectomy History of Current Condition history of pelvic pain due to 3 bone graphs off the right iliac crest for a crest for a cervical fusion that was done 3 times. Prostatectomy on 2015 he moved from [place] and moved to [place] and has surgery at [facility]. Leakage got better for awhile after surgery. However now it has returned. He wears a pad daily and only approx 1 year it will get to the point that the pad is full . Some days the pad is mostly dry. Lately his exercise level hasn't been much as he just had right sided shoulder replacement and is not able to lift over 10 lbs in November. He does 30 reps hold 2-3 count and does 2 or 3 holding 30 count. Sj notes he wakes up 1-2 times per night. He works on getting fiber in and takes a probiotic. Sj also reports sexual dysfunction s/p prostatectomy and low libido. This is a chief complaint of his. Treatment Goals Patient/Caregiver Goals pt would like to improve sexual function and decrease urinary leakage PT-OP-C Subjective Start: 02/25/24 08:10 Freq: Status: Active Protocol: Document 03/31/24 11:37 [facility] (Rec: 03/31/24 12:06 [facility] [id number]) OP-PT Subjective Patient Comments Patient Comments pt notes this week was not as good as the week before he was trying to drink more water. HE was able to do the side steps and it didn't bother his hip too much. He is still able to do the hip ER with legs straight. He did have more back pain this past week PT-OP-I Pelvic Floor Start: 02/25/24 08:10 Freq: Status: Active Protocol: Document 02/25/24 11:30 [facility] (Rec: 02/27/24 17:07 [facility] [id number]) Pelvic Floor Assessment Urine Pelvic Floor Surgery Yes: prostatectomy Other Urinary Symptoms leakage with upright activity or exericse in standing positions Leakage Size Small Leakage Cause Lifting Leaks Per Day 1 Voiding Frequency 6 Nocturia 2 Contraction Ability Voluntary Contraction Weak Voluntary Relaxation Weak Muscle Endurance (Seconds) 5 PT-OP-Q Treatments Start: 02/25/24 08:10 Freq: Status: Active Protocol: Document 03/31/24 11:37 [facility] (Rec: 03/31/24 12:06 [facility] [id number]) Therapeutic Exercises Supine Exercises supine march Reps/Minutes x 10 bridge Reps/Minutes x 10 reps supine ball squeeze with pelvic floor Side bilateral Reps/Minutes x 10 reps pelvic floor long holds Reps/Minutes 10 second hold and 10 sec release x 10 reps PT-OP-T Assessment and Plan Start: 02/25/24 08:10 Freq: Status: Active Protocol: Document 03/31/24 12:12 [facility] (Rec: 03/31/24 12:14 [facility] [id number]) Physical Therapy Assessment Assessment Summary Assessment Sj is tolerating the exercise modifications well and today I was able to add on a bridge with core engagement as well as supine TA with shilo Physical Therapy Plan Frequency and Duration Frequency of Treatment 1x/Week Duration of treatment (weeks) 8 Plan of Care Start Date 02/25/24 Plan of Care End Date 04/21/24 Therapeutic Interventions Therapeutic Interventions Home Exercise Program,Patient/ Caregiver Education,Self-Care/ Home Management,Therapeutic Exercises Modalities Biofeedback Next Visit Focus/Plan Next Note Type Treatment Note Next Visit Plan review new exercises and progress as tolerated
--- NOTE | 2024-04-07 12:17 | PT.OTN ---
Current Diagnoses Stress incontinence (female) (male) (04/07/24) Male erectile dysfunction, unspecified (04/07/24) Pelvic muscle wasting (04/07/24) Other postprocedural complications and disorders of genitourinary system (04/07/24) Nocturia (04/07/24) Physical Therapy Treatment Note PT-OP-A Visit Information Start: 02/25/24 08:10 Freq: Status: Active Protocol: Document 04/07/24 11:33 [facility] (Rec: 04/07/24 12:17 [facility] [id number]) Out-Patient Physical Therapy Visit Information Visit Information Visit Type Treatment Note Visit Start Time 11:30 Visit Stop Time 12:15 Visit Number 6 PT-OP-B Current Condition Start: 02/25/24 08:10 Freq: Status: Active Protocol: Document 02/25/24 11:30 [facility] (Rec: 02/25/24 12:21 [facility] [id number]) Current Condition History of Current Condition Onset Date 2015 s/p prostatectomy History of Current Condition history of pelvic pain due to 3 bone graphs off the right iliac crest for a crest for a cervical fusion that was done 3 times. Prostatectomy on 2015 he moved from [place] and moved to [place] and has surgery at [facility]. Leakage got better for awhile after surgery. However now it has returned. He wears a pad daily and only approx 1 year it will get to the point that the pad is full . Some days the pad is mostly dry. Lately his exercise level hasn't been much as he just had right sided shoulder replacement and is not able to lift over 10 lbs in November. He does 30 reps hold 2-3 count and does 2 or 3 holding 30 count. Sj notes he wakes up 1-2 times per night. He works on getting fiber in and takes a probiotic. Sj also reports sexual dysfunction s/p prostatectomy and low libido. This is a chief complaint of his. 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 His right hip did get tired as it was a 5 hour class. He notes he did better this week than he did the week before with leakage. He tolerated new exercises PT-OP-I Pelvic Floor Start: 02/25/24 08:10 Freq: Status: Active Protocol: Document 02/25/24 11:30 [facility] (Rec: 02/27/24 17:07 [facility] [id number]) Pelvic Floor Assessment Urine Pelvic Floor Surgery Yes: prostatectomy Other Urinary Symptoms leakage with upright activity or exericse in standing positions Leakage Size Small Leakage Cause Lifting Leaks Per Day 1 Voiding Frequency 6 Nocturia 2 Contraction Ability Voluntary Contraction Weak Voluntary Relaxation Weak Muscle Endurance (Seconds) 5 PT-OP-Q Treatments Start: 02/25/24 08:10 Freq: Status: Active Protocol: Document 04/07/24 11:33 [facility] (Rec: 04/07/24 12:17 [facility] [id number]) Therapeutic Exercises Supine Exercises TA brace with SLR Side bilateral Reps/Minutes 10 reps supine march Reps/Minutes x 10 bridge Reps/Minutes x 10 reps hip abduction with theraband Supine Exercise Name no theraband Reps/Minutes x 10 reps Comments Sj was able to tolerate this today on his hip no resistance supine ball squeeze with pelvic floor Reps/Minutes x 10 reps holding 10 seconds pelvic floor long holds Supine Exercise Name HEP Reps/Minutes 10 second hold and 10 sec release x 10 reps Standing Exercises side steps at the counter top Standing Exercise Name able to go into a little bit of a squat today with the side steps Reps/Minutes pt to work on 30 then 60 seconds of side steps PT-OP-T Assessment and Plan Start: 02/25/24 08:10 Freq: Status: Active Protocol: Document 04/07/24 11:33 [facility] (Rec: 04/07/24 12:17 [facility] [id number]) Physical Therapy Assessment Assessment Summary Assessment I was able to add to Sj's core program today and he is tolerating his exercises well. His right hip seems to be tolerating more as well and he was able to try the supine hip abduction today with good success Physical Therapy Plan Frequency and Duration Frequency of Treatment 1x/Week Duration of treatment (weeks) 8 Plan of Care Start Date 02/25/24 Plan of Care End Date 04/21/24 Therapeutic Interventions Therapeutic Interventions Home Exercise Program,Patient/ Caregiver Education,Self-Care/ Home Management,Therapeutic Exercises Modalities Biofeedback Next Visit Focus/Plan Next Note Type Treatment Note Next Visit Plan review new exercises and progress as tolerated
--- NOTE | 2024-04-14 17:12 | PT.OTN ---
Current Diagnoses Stress incontinence (female) (male) (04/14/24) Male erectile dysfunction, unspecified (04/14/24) Pelvic muscle wasting (04/14/24) Other postprocedural complications and disorders of genitourinary system (04/14/24) Nocturia (04/14/24) Physical Therapy Treatment Note PT-OP-A Visit Information Start: 02/25/24 08:10 Freq: Status: Active Protocol: Document 04/14/24 11:31 [facility] (Rec: 04/14/24 12:19 [facility] [id number]) Out-Patient Physical Therapy Visit Information Visit Information Visit Type Treatment Note Visit Start Time 11:30 Visit Stop Time 12:15 Visit Number 7 PT-OP-B Current Condition Start: 02/25/24 08:10 Freq: Status: Active Protocol: Document 02/25/24 11:30 [facility] (Rec: 02/25/24 12:21 [facility] [id number]) Current Condition History of Current Condition Onset Date 2015 s/p prostatectomy History of Current Condition history of pelvic pain due to 3 bone graphs off the right iliac crest for a crest for a cervical fusion that was done 3 times. Prostatectomy on 2015 he moved from [place] and moved to [place] and has surgery at [facility]. Leakage got better for awhile after surgery. However now it has returned. He wears a pad daily and only approx 1 year it will get to the point that the pad is full . Some days the pad is mostly dry. Lately his exercise level hasn't been much as he just had right sided shoulder replacement and is not able to lift over 10 lbs in November. He does 30 reps hold 2-3 count and does 2 or 3 holding 30 count. Sj notes he wakes up 1-2 times per night. He works on getting fiber in and takes a probiotic. Sj also reports sexual dysfunction s/p prostatectomy and low libido. This is a chief complaint of his. Treatment Goals Patient/Caregiver Goals pt would like to improve sexual function and decrease urinary leakage PT-OP-C Subjective Start: 02/25/24 08:10 Freq: Status: Active Protocol: Document 04/14/24 11:31 [facility] (Rec: 04/14/24 12:19 [facility] [id number]) OP-PT Subjective Patient Comments Patient Comments pt notes he was almost completely dry yesterday. The lateral hip exercises do help him to stay dry but they do bother his hip. He is voiding approx 1 time per night. Sj is feeling good regarding his exercise for home and is encouraged with his progress. Patient Reported Progress Improving PT-OP-I Pelvic Floor Start: 02/25/24 08:10 Freq: Status: Active Protocol: Document 02/25/24 11:30 [facility] (Rec: 02/27/24 17:07 [facility] [id number]) Pelvic Floor Assessment Urine Pelvic Floor Surgery Yes: prostatectomy Other Urinary Symptoms leakage with upright activity or exericse in standing positions Leakage Size Small Leakage Cause Lifting Leaks Per Day 1 Voiding Frequency 6 Nocturia 2 Contraction Ability Voluntary Contraction Weak Voluntary Relaxation Weak Muscle Endurance (Seconds) 5 PT-OP-Q Treatments Start: 02/25/24 08:10 Freq: Status: Active Protocol: Document 04/14/24 11:31 [facility] (Rec: 04/14/24 12:19 [facility] [id number]) Therapeutic Exercises Supine Exercises TA brace with SLR Side bilateral Reps/Minutes 10 reps supine march Reps/Minutes x 10 bridge Reps/Minutes x 10 reps hip abduction with theraband Supine Exercise Name no theraband Reps/Minutes 2 x 10 reps Comments Sj was able to tolerate this today on his hip no resistance supine ball squeeze with pelvic floor Reps/Minutes x 10 reps holding 10 seconds pelvic floor long holds Supine Exercise Name HEP Reps/Minutes 10 second hold and 10 sec release x 10 reps Sidelying Exercises clam shell Reps/Minutes x 10 Comments right side only today due to vascular work done Standing Exercises side steps at the counter top Standing Exercise Name able to go into a little bit of a squat today with the side steps Reps/Minutes pt to work on 30 then 60 seconds of side steps Other Exercises sit-stand with pelvic floor Other Exercise Name Sj notes this is helping him to brace prior to standing Reps/Minutes every time he stands PT-OP-T Assessment and Plan Start: 02/25/24 08:10 Freq: Status: Active Protocol: Document 04/14/24 11:31 [facility] (Rec: 04/14/24 12:19 [facility] [id number]) Physical Therapy Assessment Goals 3 Impairment low libido and sexual dysfunction Security And Privacy Consultant Goal (LTG) with pelvic floor strengthening exercises and hip mobility Sj reports improvement with maintaining a erection. no change LTG Duration 8 weeks 2 Impairment urinary incontinence with increased daily activity Security And Privacy Consultant Goal (LTG) Sj reports a overall reduction in urinary stress incontinence symptoms good progress LTG Duration 8 weeks 1 Impairment decreased endurnace of the pelvic floor Short Term Goal (STG) Sj is able to sustain a pelvic floor muscle contraction x 10 seconds over 10 reps in supine goal met STG Duration 4 weeks Shelter Goal (LTG) Sj is able to sustain a pelvic floor exercise 10 seconds in standing good progress and Sj is able to contract the pelvic floor in standing now and is working on pelvic floor engagement prior to lifting heavy items LTG Duration 8 weeks Assessment Summary Assessment Sj has made good progress with PT and is feeling encouraged as he has experienced intermittent days where he is staying dry. At this point he is independent with his HEP and feels ready to work at home on his exercises. Physical Therapy Plan Frequency and Duration Frequency of Treatment 1x/Week Therapeutic Interventions Therapeutic Interventions Home Exercise Program,Patient/ Caregiver Education,Self-Care/ Home Management,Therapeutic Exercises Modalities Biofeedback Discharge Physical Therapy Discharge Comments pt is independent with his HEP
== END 2024-04-24 09:48 | disposition home or self-care (01) ==
LOC: PHYS 11:30
PROVIDERS: Family Provider Family Medicine; PCP Family Medicine; Referring Provider Urology; Visit Provider Urology
DX: N99.89 Other postprocedural complications and disorders of genitourinary system (principal); N39.3 Stress incontinence (female) (male); N81.84 Pelvic muscle wasting; R35.1 Nocturia; N52.9 Male erectile dysfunction, unspecified
CPT/HCPCS: 97110; 97161; 97535

== ENCOUNTER → 2024-06-22 08:43 | Outpatient (CLI) | payer MEDICARE, OTHER, SELFPAY ==
[2022-11-09 16:01] VITALS: BMI 31.1
[2024-06-22 11:10] LABS: Testosterone 142 ng/dL (71.8-623)
== END ==
PROVIDERS: Family Provider Family Medicine; PCP Family Medicine; Referring Provider Urology; Visit Provider Urology
DX: R79.89 Other specified abnormal findings of blood chemistry (principal)
CPT/HCPCS: 36415; 84403

== ENCOUNTER → 2024-06-29 08:20 | Outpatient (CLI) | payer MEDICARE, OTHER, SELFPAY ==
[2022-11-09 16:01] VITALS: BMI 31.1
[2024-06-29 09:21] LABS: Hemoglobin A1C% w Est Avg Glu 5.5 % (4.0-6.0)
[2024-06-29 09:42] LABS: Prolactin 5.5 ng/mL (3.7-17.9)
[2024-06-29 09:45] LABS: Alanine Aminotransferase 35 IU/L (<50); Albumin 4.4 g/dL (3.5-5.0); Albumin Globulin Ratio 1.9 (1.0-2.8); Alkaline Phosphatase 75 U/L (38-126); Aspartate Aminotransferase 33 IU/L (17-59); BUN Creatinine Ratio 21.6 (6-22); Bilirubin Total 0.9 mg/dL (0.2-1.3); Blood Urea Nitrogen 16 mg/dL (9-20); Calcium 9.4 mg/dL (8.4-10.2); Carbon Dioxide 27 mmol/L (22-32); Chloride 102 mmol/L (98-107); Cholesterol 156 mg/dL (140-199); Estimated Glomerular Filt Rate > 60 mL/min (>60); Globulin 2.3 g/dL (1.7-4.1); Glucose 128 mg/dL (70-99); HDL Cholesterol 50 mg/dL (40-60); HEMOLYSIS < 15 (0-50); LDL Cholesterol Calculated 79 mg/dL (<100); Potassium 3.7 mmol/L (3.4-5.1); Sodium 138 mmol/L (137-145); Total Protein 6.7 g/dL (6.3-8.2); Triglycerides 133 mg/dL (35-150)
[2024-06-29 09:55] LABS: Prostate Specific Antigen < 0.064 ng/mL (0.10-4.00)
[2024-06-29 09:58] LABS: Testosterone 182 ng/dL (71.8-623)
[2024-06-29 10:02] LABS: Follicle Stimulating Hormone 7.68 mIU/mL; Luteinizing Hormone 3.55 mIU/mL
[2024-06-30 15:23] LABS: Hep C Virus Ab w/Reflex Quant NEGATIVE s/c (NEGATIVE)
== END ==
PROVIDERS: Family Provider Family Medicine; PCP Family Medicine; Referring Provider Urology; Visit Provider Urology
DX: Z00.00 Encounter for general adult medical examination without abnormal findings (principal); R79.89 Other specified abnormal findings of blood chemistry; C61 Malignant neoplasm of prostate; R68.82 Decreased libido; E11.9 Type 2 diabetes mellitus without complications; E78.5 Hyperlipidemia, unspecified; I10 Essential (primary) hypertension
CPT/HCPCS: 36415; 80053; 80061; 83001; 83002; 83036; 84146; 84153; 84403; 86803

== ENCOUNTER → 2024-11-03 11:10 | Outpatient (CLI) | payer MEDICARE, OTHER, SELFPAY ==
[2024-07-08 11:42] VITALS: BMI 31.1
[2024-11-03 13:04] LABS: Prostate Specific Antigen < 0.064 ng/mL (0.10-4.00)
== END ==
PROVIDERS: Family Provider Family Medicine; PCP Family Medicine; Referring Provider Family Medicine; Visit Provider Urology
DX: C61 Malignant neoplasm of prostate (principal)
CPT/HCPCS: 36415; 84153

== ENCOUNTER → 2024-12-21 10:42 | Outpatient (CLI) | payer MEDICARE, OTHER, SELFPAY ==
[2024-07-08 11:42] VITALS: BMI 31.1
== END ==
PROVIDERS: Family Provider Family Medicine; PCP Family Medicine; Referring Provider Family Medicine; Visit Provider Family Medicine
DX: Z12.11 Encounter for screening for malignant neoplasm of colon (principal)
CPT/HCPCS: 82274

== ENCOUNTER → 2024-12-29 11:07 | Outpatient (CLI) | payer MEDICARE, OTHER, SELFPAY ==
[2024-07-08 11:42] VITALS: BMI 31.1
[2024-12-29 12:27] LABS: Hemoglobin A1C% w Est Avg Glu 5.9 % (4.0-6.0)
== END ==
PROVIDERS: PCP Family Medicine; Referring Provider Family Medicine; Visit Provider Family Medicine
DX: E11.9 Type 2 diabetes mellitus without complications (principal)
CPT/HCPCS: 36415; 83036